=== PATIENT | male | born 1985 | race Caucasian/White ===

== ENCOUNTER 2020-04-04 18:50 | Emergency (ER) | payer MEDICAID, SELFPAY ==
[2020-04-04 19:03] VITALS: BP 162/108; PULSE 97; RESP 14; TEMP 37.6; O2SAT 95; BMI 21.4
--- NOTE | 2020-04-04 19:14 | PC.NURSE ---
EKG done at 191 and shown to ER doctor
--- NOTE | 2020-04-04 19:25 | XRR_ITS ---
PROCEDURE INFORMATION: Exam: XR Chest, 1 View Exam date and time: 04/04/2020 7:46 PM Age: 34 years old Clinical indication: Cough; Additional info: Cp TECHNIQUE: Imaging protocol: XR of the chest Views: 1 view. COMPARISON: No relevant prior studies available. FINDINGS: Lungs: Unremarkable. No consolidation. Pleural space: Unremarkable. No pleural effusion. No pneumothorax. Heart/Mediastinum: Unremarkable. No cardiomegaly. Bones/joints: Unremarkable. XR/XR chest 1V [id number] IMPRESSION: No acute findings.
--- NOTE | 2020-04-04 19:26 | ED_ITS ---
HPI - Abdominal Pain General: Chief Complaint: Abdominal Pain Stated Complaint: abd pain Time Seen by Provider: 04/04/20 19:08 History of Present Illness: HPI narrative: 34-year-old male, healthy, presents with epigastric abdominal pain the last 3 days. It radiates towards his left shoulder. He is not been short of breath, but hurts when he does take a deep breath. No vomiting. No diarrhea. He notes his blood pressures been high for the past couple of weeks and wonders if they are related. He has not had any cough. He states it almost feels like there is something stuck at the bottom of his chest in his esophagus. MD elicited complaint: abdominal pain Pertinent past history: none Onset (ago): day(s) (3) Location: Epigastric Severity: moderate Quality: cramping Radiation: epigastric Migration to: other (chest and left shoulder) Relieving factors: nothing Associated Symptoms: Reports nausea; Denies belching, chills, GI cramping, diarrhea, dysuria, fever(s), loose stools and vomiting Review of Systems Const: Denies: fever(s) or chills Eyes: Denies: change in vision or blurry vision ENMT: Denies: swelling of lips/tongue, bleeding gums or post nasal drip Card: Reports: chest pain; Denies: palpitations, irregular heart rhythm, swelling of feet/ankles, dyspnea on exertion or orthopnea Resp: Denies: dyspnea, productive cough, non-productive cough or wheezing GI: Reports: nausea; Denies: vomiting, diarrhea, GI cramping or belching : Denies: difficulty urinating or dysuria Musc: Denies: neck pain or back pain Skin/Breast: Denies: rash or erythema Neuro: Denies: headache(s), dizziness or vertigo Psych: Denies: anxiety PFSH ED PFSH: Family History (Updated 03/18/20 @ 08:42 by Haley Souza LPN, RT) Father Hypertension Mother , age 47 Cancer ovarian Denies family history of Clotting disorder Anesthesia complication Bleeding disorder Social History (Updated 03/18/20 @ 08:45 by Haley Souza LPN, RT) Smoking and tobacco status: current every day smoker cigarettes Packs smoked per day: 0.5 Years cigarettes smoked: 15 Second hand smoke exposure: Yes Alcohol intake: current Alcohol intake frequency: few times a month Alcohol type: beer Lives independently: Yes Household members: spouse Housing: House Marital status: Current occupational status: unemployed History of recent travel: No Current gender identity: Male Physical Exam Const: GENERAL APPEARANCE: well developed ORIENTATION/CONSCIOUSNESS: Yes oriented to person, Yes oriented to place and Yes oriented to time HENMT: COMMON NORMALS: normocephalic, external ears normal and Normal external nose present HEAD & SCALP: normocephalic; no scalp tenderness NOSE: Normal external nose present and No nasal discharge present EXTERNAL EAR: Yes external ears normal THROAT: posterior oropharynx normal; no peritonsillar mass Eye: COMMON NORMALS: Equal, round and reactive pupils present, EOMs intact bilaterally and conjunctivae normal EYELID: eyelids normal CONJUNCTIVA: Yes conjunctivae normal PUPIL: Yes Equal, round and reactive pupils present Neck/C-Spine: GENERAL: No tracheal deviation Chest: COMMONS NORMALS: normal inspection of the chest CHEST: No tenderness Resp: COMMON NORMALS: clear to auscultation bilaterally EFFORT & INSPECTION: No tachypneic, No respiratory distress, No retractions, No uses accessory muscles and No tracheal deviation AUSCULTATION: clear to auscultation bilaterally, no rhonchi, no wheezes and lung sounds not diminished Cardio: COMMON NORMALS: regular rate and regular rhythm RATE: regular rate RHYTHM: regular rhythm HEART SOUNDS: no murmurs PERIPHERAL PULSES: radial pulses present GI: INSPECTION: No abdominal distension AUSCULTATION: No Hyperactive bowel sounds present and No Hypoactive bowel sounds present PALPATION: Yes Tenderness to palpation present (GI) (epigastric), Yes Guarding due to palpation present (GI) and No Rigid due to palpation PERCUSSION: no dullness to percussion and no tympanic to percussion Neuro: SENSORIUM/ORIENTATION: Yes oriented to person, Yes oriented to place and Yes oriented to time Psych: COMMON NORMALS: mental status grossly normal Skin: COMMON NORMALS: no rashes or lesions noted GENERAL SKIN EXAM: no rashes or lesions noted Course Vital Signs: Vital signs: Vital Signs Temperature 98.1 F 04/04/20 21:05 Pulse Rate 78 04/04/20 22:40 Respiratory Rate 16 04/04/20 22:40 Blood Pressure 151/105 04/04/20 22:40 Pulse Oximetry 98 04/04/20 22:40 MDM - Abdominal Pain Lab Data: Labs: Lab Results 04/04/20 04/04/20 04/04/20 Range/Units 19:43 19:43 19:43 WBC 10.2 H (4.0-10.0) 10^3/ uL RBC 4.64 (4.1-5.3) 10^6/u L Hgb 13.8 (11.7-16.6) g/dL Hct 41.1 L (42.0-52.0) % MCV 88.6 (80-94) fL MCH 29.7 (28.0-34.0) pg MCHC 33.6 (30.0-36.0) g/dL RDW 13.4 (12.1-15.1) % Plt Count 181 (130-400) 10^3/c mm MPV 9.3 (7.4-10.4) fL Neut % (Auto) 56.2 % Lymph % (Auto) 33.1 % [place] % (Auto) 8.7 % Eos % (Auto) 1.3 % Baso % (Auto) 0.5 % Neut # (Auto) 5.71 (1.8-7.7) 10^3/u L Lymph # (Auto) 3.4 (0.8-4.8) 10^3/u L [place] # (Auto) 0.9 (0.2-0.9) 10^3/u L Eos # (Auto) 0.1 (0.0-0.8) 10^3/u L Baso # (Auto) 0.1 (0.0-0.1) 10^3/u L Nucleated RBC % (a uto) 0 % Nucleated RBCs # 0.0 /100WBC D-Dimer 0.56 (0-0.59) ug/mIFE U Sodium 138 (136-145) mmol/L Potassium 3.3 L (3.5-5.1) mmol/L Chloride 104 (98-107) mmol/L Carbon Dioxide 25 (22-29) mmol/L Anion Gap 12.3 (5-19) BUN 12 (6-20) mg/dL Creatinine 0.8 (0.7-1.2) mg/dL GFR Calculation 110.7 (90-130) mL/min Glucose 119 H (65-115) mg/dL Calculated Osmolal ity 283 L (285-295) mOsm/k g Calcium 9.1 (8.5-10.5) mg/dL Total Bilirubin 0.2 (0.15-1.2) mg/dL AST 15 (0-40) U/L ALT 11 (0-41) U/L Alkaline Phosphata se 62 (40-130) IU/L Troponin T Gen 5 n g/L (0-15) ng/L C-Reactive Protein 47.7 H (0.0-4.9) mg/L Total Protein 6.9 (6.6-8.7) g/dL Albumin 4.4 (3.5-5.2) g/dL Globulin 2.5 (1.3-4.6) g/dL Lipase 62 H (13-60) U/L Urine Color (Yellow) Urine Appearance (CLEAR) Urine pH (5-7) Ur Specific Gravit y (1.005-1.030) Urine Protein (Negative) Urine Glucose (UA) (Normal) Urine Ketones (Negative) Urine Blood (Negative) Urine Nitrate (Negative) Urine Bilirubin (NEGATIVE) Urine Urobilinogen (Negative) mg/dL Ur Leukocyte Karissa ase (Negative) Urine RBC (0-2) /hpf Urine WBC (0-5) /hpf Ur Squamous Epith Cells (0-5) Ur Transition Epit h Cell /hpf Amorphous Sediment Urine Bacteria (NONE) 04/04/20 04/04/20 Range/Units 19:43 20:30 WBC (4.0-10.0) 10^3/ uL RBC (4.1-5.3) 10^6/u L Hgb (11.7-16.6) g/dL Hct (42.0-52.0) % MCV (80-94) fL MCH (28.0-34.0) pg MCHC (30.0-36.0) g/dL RDW (12.1-15.1) % Plt Count (130-400) 10^3/c mm MPV (7.4-10.4) fL Neut % (Auto) % Lymph % (Auto) % [place] % (Auto) % Eos % (Auto) % Baso % (Auto) % Neut # (Auto) (1.8-7.7) 10^3/u L Lymph # (Auto) (0.8-4.8) 10^3/u L [place] # (Auto) (0.2-0.9) 10^3/u L Eos # (Auto) (0.0-0.8) 10^3/u L Baso # (Auto) (0.0-0.1) 10^3/u L Nucleated RBC % (a uto) % Nucleated RBCs # /100WBC D-Dimer (0-0.59) ug/mIFE U Sodium (136-145) mmol/L Potassium (3.5-5.1) mmol/L Chloride (98-107) mmol/L Carbon Dioxide (22-29) mmol/L Anion Gap (5-19) BUN (6-20) mg/dL Creatinine (0.7-1.2) mg/dL GFR Calculation (90-130) mL/min Glucose (65-115) mg/dL Calculated Osmolal ity (285-295) mOsm/k g Calcium (8.5-10.5) mg/dL Total Bilirubin (0.15-1.2) mg/dL AST (0-40) U/L ALT (0-41) U/L Alkaline Phosphata se (40-130) IU/L Troponin T Gen 5 n g/L 6 (0-15) ng/L C-Reactive Protein (0.0-4.9) mg/L Total Protein (6.6-8.7) g/dL Albumin (3.5-5.2) g/dL Globulin (1.3-4.6) g/dL Lipase (13-60) U/L Urine Color Yellow (Yellow) Urine Appearance Hazy A (CLEAR) Urine pH 6 (5-7) Ur Specific Gravit y 1.020 (1.005-1.030) Urine Protein Neg (Negative) Urine Glucose (UA) Norm (Normal) Urine Ketones Negative (Negative) Urine Blood Neg (Negative) Urine Nitrate Negative (Negative) Urine Bilirubin Neg (NEGATIVE) Urine Urobilinogen 1 H (Negative) mg/dL Ur Leukocyte Karissa ase Negative (Negative) Urine RBC 0-4 H (0-2) /hpf Urine WBC None (0-5) /hpf Ur Squamous Epith Cells None (0-5) Ur Transition Epit h Cell None /hpf Amorphous Sediment 3+ Urine Bacteria Trace (NONE) Discharge Plan Discharge Patient Disposition: Home Clinical Impression: Gastritis Qualifiers: Gastritis type: unspecified gastritis Chronicity: acute Gastritis bleeding: without bleeding Qualified Code(s): K29.00 - Acute gastritis without bleeding Hypertension Qualifiers: Hypertension type: essential hypertension Qualified Code(s): I10 - Essential (primary) hypertension Condition: Stable Prescriptions: New Prevacid 30 mg capsule,delayed release(DR/EC) 30 mg PO DAILY Qty: 30 RF: 0 amlodipine 10 mg tablet 10 mg PO DAILY Qty: 30 RF: 0 No Action citalopram [Celexa] 20 mg tablet 20 mg PO DAILY RF: 0 fluticasone propionate [Flonase Allergy Relief] 50 mcg/actuation spray,suspension 2 spray INTRANASAL DAILY Qty: 16 RF: 0 cetirizine [Zyrtec] 10 mg tablet 10 mg PO DAILY PRN (Reason: allergy symptoms) Qty: 30 RF: 0 Discharge Orders: Discharge Order (Routine); Ordered 04/04/20 Ordered By: Jaylon Staley Referrals: Mika Campbell, SENIOR STAFF SPECIALIZED EMPLOYMENT-[employer] [Primary Care Provider] - 4-7 days Discharge Diet: Advance as tolerated Discharge Activity: Increase activity as tolerated Patient Instructions: Gastritis (ED), Hypertension (ED) Activity Restrictions/Additional Instructions: Return for fever greater than 100, worsening pain despite treatment, numbing liquids or medications, increasing shortness of breath, other concerning symptoms. Medications as directed. Discharge Date/Time: 04/04/20 22:41 Coding Level of Care Code ED Environmental Engineer Scientist for Ashutoshg Fwd Exam Comprehensive
[2020-04-04] MEDS: sodium chloride 0.9% 1,000 ML 999 ML IV (19:48)
[2020-04-04 20:14] LABS: Basophils # 0.1 10^3/uL (0.0-0.1); Basophils % 0.5 %; Eosinophils # 0.1 10^3/uL (0.0-0.8); Eosinophils % 1.3 %; Hematocrit 41.1 % (42.0-52.0); Hemoglobin 13.8 g/dL (11.7-16.6); Lymphocytes # 3.4 10^3/uL (0.8-4.8); Lymphocytes % 33.1 %; Mean Corpuscular HGB Conc 33.6 g/dL (30.0-36.0); Mean Corpuscular Hemoglobin 29.7 pg (28.0-34.0); Mean Corpuscular Volume 88.6 fL (80-94); Mean Platelet Volume 9.3 fL (7.4-10.4); Monocytes # 0.9 10^3/uL (0.2-0.9); Monocytes % 8.7 %; Neutrophils # 5.71 10^3/uL (1.8-7.7); Neutrophils % 56.2 %; Nucleated Red Blood Cells % 0 %; Platelet Count 181 10^3/cmm (130-400); Red Blood Count 4.64 10^6/uL (4.1-5.3); Red Cell Distribution Width 13.4 % (12.1-15.1); White Blood Count 10.2 10^3/uL (4.0-10.0)
[2020-04-04 20:24] LABS: D Dimer 0.56 ug/mIFEU (0-0.59)
[2020-04-04 20:27] LABS: Alanine Aminotransferase 11 U/L (0-41); Albumin Level 4.4 g/dL (3.5-5.2); Alkaline Phosphatase 62 IU/L (40-130); Anion Gap 12.3 (5-19); Aspartate Amino Transferase 15 U/L (0-40); Blood Urea Nitrogen 12 mg/dL (6-20); Calcium 9.1 mg/dL (8.5-10.5); Carbon Dioxide 25 mmol/L (22-29); Chloride 104 mmol/L (98-107); Globulin 2.5 g/dL (1.3-4.6); Glomerular Filtration Rate 110.7 mL/min (90-130); Glucose 119 mg/dL (65-115); Lipase 62 U/L (13-60); Osmolality Calculated 283 mOsm/kg (285-295); Potassium 3.3 mmol/L (3.5-5.1); Sodium 138 mmol/L (136-145); Total Bilirubin 0.2 mg/dL (0.15-1.2); Total Protein 6.9 g/dL (6.6-8.7)
[2020-04-04 20:29] LABS: Troponin T (5th) Once 6 ng/L (0-15)
[2020-04-04 21:05] VITALS: TEMP 36.7
[2020-04-04 21:05] LABS: Blood Urine Neg (Negative); Glucose Urine UA Norm (Normal); Ketones Urine Negative (Negative); Nitrate Urine Negative (Negative); Protein Urine Neg (Negative); Urine Appearance Hazy (CLEAR); Urine Color Yellow (Yellow); pH Urine 6 (5-7)
[2020-04-04 21:06] LABS: Add Urine Microscopic? YES; Bilirubin Urine Neg (NEGATIVE); Leukocyte Esterase Urine Negative (Negative); Urobilinogen Urine 1 mg/dL (Negative)
[2020-04-04 21:14] LABS: C Reactive Protein 47.7 mg/L (0.0-4.9)
[2020-04-04 21:29] LABS: Add Urine Culture? No; Amorphous Sediment Urine 3+; Bacteria Urine TRACE; RBC Urine 0-4 /hpf (0-2)
[2020-04-04] MEDS: potassium chloride ER 10 mEq Tablet 20 MEQ PO (22:33)
[2020-04-04 22:40] VITALS: BP 151/105; PULSE 78; RESP 16; O2SAT 98
== END 2020-04-04 22:41 | disposition home or self-care (01) ==
PROVIDERS: Emergency Provider Emergency Medicine; PCP Nurse Practitioner
DX: K29.00 Acute gastritis without bleeding (principal); I10 Essential (primary) hypertension; F17.210 Nicotine dependence, cigarettes, uncomplicated
CPT/HCPCS: 12345; 71045; 80053; 81001; 81003; 83690; 84484; 85025; 85378; 86140; 96361; 96374; 99283; J7030

== ENCOUNTER 2020-12-01 10:44 | Emergency (ER) | payer MEDICAID, SELFPAY ==
[2020-12-01 11:15] VITALS: BP 164/131; PULSE 79; RESP 14; TEMP 36.9; O2SAT 99; BMI 21.4
--- NOTE | 2020-12-01 11:36 | ED_ITS ---
HPI - Dental/Oral General: Chief complaint: Dental/Oral Stated complaint: POSS GUM INFECTION Time Seen by Provider: 12/01/20 11:32 Source: patient Mode of arrival: ambulatory Limitations: no limitations History of Present Illness: HPI Narrative: Patient is a nice 35-year-old male who presents to ED today concerned about some gingival swelling, pain, and discharge he has had since he had all of his upper teeth extracted recently at [facility] in [place]. This procedure was performed 4 days ago. He was not placed on antibiotics before or after the procedure. He states he has noticed his gums feel extremely sore and has noticed a green pus like discharge from some of the sockets. He has not been running fevers. Patient is still able to tolerate liquids and soft foods. Onset (ago): day(s) Duration: constant Severity: moderate Relieving factors: nothing Exacerbating factors: nothing Context: poor dental care and other (several/all of upper teeth extracted recently ) Associated symptoms: Denies fever(s) or odynophagia Treatment prior to arrival: other (tylenol/ibuprofen and warm salt water rinses) Review of Systems Const: Denies: fever(s) or chills ENMT: Reports: dental pain; Denies: throat pain or odynophagia Card: Denies: chest pain Resp: Denies: dyspnea GI: Denies: nausea or vomiting Skin/Breast: Denies: rash Neuro: Denies: headache(s) Physical Exam Const: COMMON NORMALS: no acute distress, no limitations and alert GENERAL APPEARANCE: cooperative HENMT: TEETH & GINGIVA: Yes edentulous (to upper gumline) OTHER: pt has several (approximately 6-7) empty sockets to upper gumline from recent extractions; sockets have granulation tissue present in them; there is some mild gingival irritation and swelling; scant amount of drainage noted; no abscess formation present Neuro: SENSORIUM/ORIENTATION: Yes alert Course Vital Signs: Vital signs: Vital Signs Temperature 98.5 F 12/01/20 11:15 Pulse Rate 79 12/01/20 11:15 Respiratory Rate 14 12/01/20 11:15 Blood Pressure 164/131 12/01/20 11:15 Pulse Oximetry 99 12/01/20 11:15 Discharge Plan Discharge Patient Disposition: Home Clinical Impression: Status post tooth extraction Condition: Stable Prescriptions: New penicillin V potassium 500 mg tablet 500 mg PO Q8H 7 Days Qty: 21 RF: 0 Peridex 0.12 % mouthwash 15 ml PO BID Qty: 118 RF: 0 Discharge Orders: Discharge ED (Routine); Ordered 12/01/20 Ordered By: Alisha Correa Coding Level of Care Code ED Industrial Arts Teacher for Conor Castillo
[2020-12-01 11:54] VITALS: BP 196/125; PULSE 80; RESP 14; O2SAT 99
== END 2020-12-01 11:55 | disposition home or self-care (01) ==
PROVIDERS: Emergency Provider Physician Assistant
DX: K08.409 Partial loss of teeth, unspecified cause, unspecified class (principal)
CPT/HCPCS: 99282

== ENCOUNTER → 2021-02-19 10:43 | Outpatient (BNVA) | payer MEDICAID, SELFPAY | PROVIDERS: PCP Nurse Practitioner; Visit Provider Nurse Practitioner Family | DX: I10 Essential (primary) hypertension (principal); F41.9 Anxiety disorder, unspecified; F17.200 Nicotine dependence, unspecified, uncomplicated | CPT/HCPCS: 80053; 80061; 84443; 85025 ==

== ENCOUNTER 2021-07-17 21:20 | Emergency (ER) | payer MEDICAID, SELFPAY ==
[2021-07-17 21:35] VITALS: BP 116/72; PULSE 84; RESP 18; TEMP 37.1; O2SAT 97; BMI 21.4
--- NOTE | 2021-07-17 22:51 | W.ED.MALEGU ---
HPI - Male Genitourinary General: Chief complaint: Urogenital-Male Stated complaint: Painful Rash Time Seen by Provider: 07/17/21 22:51 History of Present Illness: HPI Narrative: 36-year-old male patient comes in today for complaints of rash to the groin that is tender. Patient also has a rash to his feet bilaterally. Patient appears well. Patient appears no acute distress. Review of Systems General: Reports: 10 or more systems reviewed and unremarkable except in HPI and below Musc: Reports: other (Rash to groin and feet) PFSH ED PFSH: Medical History No pertinent past medical history Surgical History No pertinent past surgical history Family History Father Hypertension Mother , age 47 Cancer ovarian Denies family history of Clotting disorder Anesthesia complication Bleeding disorder Social History Smoking and tobacco status: current every day smoker cigarettes Packs smoked per day: 0.5 Years cigarettes smoked: 15 Second hand smoke exposure: Yes Alcohol intake: current Alcohol intake frequency: few times a month Alcohol type: beer Desire information about substance/drug rehabilitation?: No Lives independently: Yes Household members: spouse Housing: House Marital status: Number of children: 6 Highest education level completed: High School Graduate service: No Current occupational status: employed Pets and animals: Yes History of recent travel: No Current gender identity: Male Physical Exam Const: COMMON NORMALS: no acute distress and patient oriented x3 GENERAL APPEARANCE: cooperative HENMT: COMMON NORMALS: normocephalic HEAD & SCALP: normal to inspection and normocephalic Eye: GENERAL EYE: appearance normal, both eyes and all related structures Neck/C-Spine: COMMON NORMALS: full ROM Chest: COMMONS NORMALS: normal inspection of the chest Resp: COMMON NORMALS: normal respiratory effort EFFORT & INSPECTION: Yes able to speak in complete sentences Cardio: COMMON NORMALS: regular rate and regular rhythm RATE: regular rate RHYTHM: regular rhythm GI: COMMON NORMALS: non-tender Back/Pelvis: COMMON NORMALS: thoracic and lumbar spine normal to inspection Extremity: COMMON NORMALS: normal to inspection Neuro: COMMON NORMALS: patient oriented x3 and moves all extremities Psych: COMMON NORMALS: mental status grossly normal and cooperative Skin: NARRATIVE SKIN EXAM: Rash noted to groin is erythematous with satellite lesions. Patient also has a sloughing rash to his webbing of his toes and soles of his feet. Course Vital Signs: Vital signs: Vital Signs Temperature 98.8 F 07/17/21 23:50 Pulse Rate 84 07/17/21 23:50 Respiratory Rate 18 07/17/21 23:50 Blood Pressure 116/72 07/17/21 23:50 Pulse Oximetry 97 07/17/21 23:50 MDM - Male MDM Narrative: Medical decision making narrative: Patient comes in for rash to the groin and feet. On exam we noticed a erythematous rash to the groin with some satellite lesions, patient also has a rash to his feet. Tinea pedis, tinea corporis, intertrigo. Recommended treatment for intertrigo to his groin with Chlortrimazole and hydrocortisone. We will continue with Chlortrimazole to the feet for his athlete's foot. Patient reported understanding of care plan and need for follow-up or return. Discharge Plan Discharge Patient Disposition: Home Clinical Impression: Tinea pedis of both feet, Intertrigo Condition: Stable Prescriptions: New clotrimazole 1 % cream 1 applic topical BID 28 Days Qty: 30 RF: 0 hydrocortisone 1 % cream 1 applic topical BID PRN (Reason: skin irritation) Qty: 28.35 RF: 0 No Action citalopram [Celexa] 20 mg tablet 20 mg PO DAILY 30 Days Qty: 30 RF: 5 fluticasone propionate [Flonase Allergy Relief] 50 mcg/actuation spray,suspension 2 spray INTRANASAL DAILY Qty: 16 RF: 0 cetirizine [Zyrtec] 10 mg tablet 10 mg PO DAILY PRN (Reason: allergy symptoms) Qty: 30 RF: 0 Discharge Orders: Discharge ED (Routine); Ordered 07/17/21 Ordered By: Nathaniel Toribio Referrals: Mika Campbell, SHIPPING CLERK [employer] [Primary Care Provider] - Discharge Diet: Usual diet Discharge Activity: Increase activity as tolerated Patient Instructions: Tinea Corporis (ED), Opioid Safety Activity Restrictions/Additional Instructions: Use Chlortrimazole cream twice a day for the next 2 to 4 weeks. You should notice improvement within 1 week continue using the cream for another 7 days after clearance. Follow-up with primary care in 1 week for recheck. Use hydrocortisone cream as needed for skin irritation and discomfort. Return to the emergency department for new concerns. Coding Level of Care Code ED Wall Taper Helper for Conor Castillo
[2021-07-17] MEDS: clotrimazole 1% cream 30 gm 1 APPLIC TOPICAL (23:48)
[2021-07-17] MEDS: hydrocortisone 1% cream 28 gm 1 APPLIC TOPICAL (23:48)
[2021-07-17 23:50] VITALS: BP 116/72; PULSE 84; RESP 18; TEMP 37.1; O2SAT 97
== END 2021-07-17 23:51 | disposition home or self-care (01) ==
PROVIDERS: Emergency Provider Nurse Practitioner Family; PCP Nurse Practitioner
DX: B35.3 Tinea pedis (principal); L30.4 Erythema intertrigo; F17.210 Nicotine dependence, cigarettes, uncomplicated
CPT/HCPCS: 99283

== ENCOUNTER 2022-04-02 00:59 | Inpatient (IN) | payer MEDICAID, SELFPAY ==
[2022-04-02 01:00] VITALS: BMI 22.8
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
[2022-04-02 01:25] LABS: Basophils # 0.1 10^3/uL (0.0-0.1); Basophils % 0.9 %; Eosinophils # 0.2 10^3/uL (0.0-0.8); Eosinophils % 1.9 %; Hematocrit 43.9 % (42.0-52.0); Hemoglobin 15.2 g/dL (11.7-16.6); Lymphocytes # 3.1 10^3/uL (0.8-4.8); Lymphocytes % 35.7 %; Mean Corpuscular HGB Conc 34.6 g/dL (30.0-36.0); Mean Corpuscular Hemoglobin 30.6 pg (28.0-34.0); Mean Corpuscular Volume 88.3 fl (80-94); Mean Platelet Volume 8.9 fL (7.4-10.4); Monocytes # 0.7 10^3/uL (0.2-0.9); Monocytes % 8.3 %; Neutrophils # 4.56 10^3/uL (1.8-7.7); Nucleated Red Blood Cells % 0 %; Platelet Count 216 10^3/cmm (130-400); Red Blood Count 4.97 10^6/uL (4.1-5.3); Red Cell Distribution Width 13.4 % (12.1-15.1); White Blood Count 8.6 10^3/uL (4.0-10.0)
[2022-04-02 02:03] LABS: Alanine Aminotransferase 13 U/L (0-41); Albumin Level 4.8 g/dL (3.5-5.2); Alcohol Level 94 mg/dL (0-10); Alkaline Phosphatase 71 IU/L (40-130); Anion Gap 14.5 (5-19); Aspartate Amino Transferase 19 U/L (0-40); Blood Urea Nitrogen 11 mg/dL (6-20); Calcium 8.9 mg/dL (8.5-10.5); Carbon Dioxide 24 mmol/L (22-29); Chloride 105 mmol/L (98-107); Creatinine Clr Calc Pharmacy 113.2168; Globulin 2.5 g/dL (1.3-4.6); Glomerular Filtration Rate 95.5 mL/min (90-130); Glucose 99 mg/dL (65-115); Osmolality Calculated 289 mOsm/kg (285-295); Potassium 3.5 mmol/L (3.5-5.1); Sodium 140 mmol/L (136-145); Thyroid Stimulating Hormone 2.02 uIU/mL (0.27-4.20); Total Bilirubin 0.3 mg/dL (0.15-1.2); Total Protein 7.3 g/dL (6.6-8.7)
[2022-04-02 02:07] LABS: Acetaminophen < 5.0 ug/mL (10-30); Salicylate < 0.3 mg/dL (3-10)
[2022-04-02 05:41] LABS: Amphetamines Screen Urine Negative (Negative); Barbiturates Screen Urine Negative (Negative); Benzodiazepines Screen Urine Negative (Negative); Cocaine Screen Urine Negative (Negative); Opiate Screen Urine Negative (Negative); PCP Screen Urine Negative (Negative); THC Screen Urine Positive (Negative)
[2022-04-02 05:50] LABS: SARS Covid-2 Antigen Negative (Negative)
--- NOTE | 2022-04-02 08:09 | PC.PHAR ---
pt states he takes care of his own medications-pt states he doesnt take the diovan 40mg ext med history shows last filled 10/27/21 pt states never took
[2022-04-02 12:16] VITALS: BP 156/109; PULSE 89; RESP 16; TEMP 36.8; O2SAT 99
[2022-04-02 12:19] VITALS: BP 156/109; PULSE 89; RESP 16; TEMP 36.8; O2SAT 99
[2022-04-02 13:09] VITALS: BP 177/122
[2022-04-02] MEDS: cloNIDine 0.1 mg Tablet PO (13:09)
[2022-04-02] MEDS: hyDROXYzine 25 mg Capsule 50 MG PO (13:09)
--- NOTE | 2022-04-02 13:09 | PC.NURSE ---
PRN VISTARIL 50 MG GIVEN PO PER PT C/O ANXIETY
[2022-04-02 14:00] VITALS: BP 163/103; PULSE 68; RESP 17; TEMP 36.9; O2SAT 98
[2022-04-02 20:25] VITALS: BP 140/98; PULSE 92; RESP 18; TEMP 36.8; O2SAT 97
[2022-04-03 06:00] VITALS: BP 153/93; PULSE 18; RESP 18; TEMP 36.5; O2SAT 97
[2022-04-03] MEDS: folic acid 1 mg Tablet PO (08:54)
[2022-04-03] MEDS: citalopram 20 mg Tablet PO (08:54)
[2022-04-03] MEDS: multivitamin therapeutic Tablet 1 TAB PO (08:54)
[2022-04-03] MEDS: thiamine 100 mg Tablet PO (08:54)
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
[2022-04-03 14:00] VITALS: BP 178/97; PULSE 86; RESP 17; TEMP 36.6; O2SAT 98
[2022-04-03] MEDS: LORazepam 2 mg Tablet PO (15:03)
--- NOTE | 2022-04-03 15:03 | PC.NURSE ---
ciwa score 10--ativan 2 mg given po per protocol, blood pressure 178/97
[2022-04-03 15:41] VITALS: BP 158/93; PULSE 80; O2SAT 97
[2022-04-03 22:00] VITALS: BP 146/93; PULSE 88; RESP 17; TEMP 36.7; O2SAT 96
[2022-04-04 06:00] VITALS: BP 160/94; PULSE 80; RESP 17; TEMP 36.6; O2SAT 97; BMI 22.8
[2022-04-04] MEDS: citalopram 20 mg Tablet 30 MG PO (09:18)
[2022-04-04] MEDS: multivitamin therapeutic Tablet 1 TAB PO (09:18)
[2022-04-04] MEDS: thiamine 100 mg Tablet PO (09:18)
[2022-04-04] MEDS: folic acid 1 mg Tablet PO (09:20)
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
[2022-04-04] MEDS: amlodipine 5 mg Tablet PO (12:13)
--- NOTE | 2022-04-04 12:13 | PC.NURSE ---
Per Dr. Valentin consulted Dr. Murray Hospitalist about pt's hypertension. Dr. Murray ordered Amlodipine 5mg PO daily.
[2022-04-04 14:00] VITALS: BP 159/96; PULSE 85; RESP 17; TEMP 36.6; O2SAT 97
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
--- NOTE | 2022-04-04 17:37 | PM.CONSULT ---
Providers/Reason For Consult Consulting Physician/Specialty*: Dr. Fabian Valentin Reason for Consult*: Hypertension Attending Physician: Fabian Valentin MD Primary Care Provider: ALESHA Browning History of Present Illness History of Present Illness Boo Gibbs is a 36 year old male currently admitted under psych for management homicidal behavior generalized anxiety disorder , medicine was consulted for management of elevated blood pressure.Patient has known past medical history of hypertension But has not taken antihypertensive medications for a long time. Overall patient blood pressure in the last couple of days has mostly remained in 140s to 160s systolic blood pressure, and diastolic in 90s. Review of Systems General: Reports: 10 or more systems reviewed and unremarkable except in HPI and below Const: Denies: fever(s), chills, body aches, change in appetite or diaphoresis Card: Denies: palpitations, edema, swelling of feet/ankles, dyspnea on exertion, orthopnea or leg pain with exertion Resp: Denies: dyspnea, productive cough, wheezing or pain on inspiration GI: Denies: abdominal pain, nausea, vomiting, diarrhea or constipation : Denies: flank pain or difficulty urinating Musc: Denies: back pain, extremity pain or extremity swelling Neuro: Denies: headache(s), difficulty walking or confusion Medications/Allergies Home Medications Medication Instructions Recorded Confirmed Last Taken Type acetaminophen 500 mg tablet 1,000 mg PO Q6H PRN 04/02/22 04/02/22 Unknown History citalopram 20 mg tablet 20 mg PO DAILY 04/02/22 04/02/22 Unknown History ibuprofen 200 mg tablet 400 mg PO Q6H PRN 04/02/22 04/02/22 Unknown History Allergies Allergy/AdvReac Type Severity Reaction Status Date / Time No Known Allergies Allergy Verified 04/02/22 08:07 Current Medications Generic Name Dose Route Start Last Admin Trade Name Freq PRN Reason Stop Dose Admin Amlodipine Besylate 5 mg 04/04/22 12:00 04/04/22 12:13 Amlodipine 5 Mg Tablet PO 5 mg DAILY NANI Administration Folic Acid 1 mg 04/03/22 09:00 04/04/22 09:20 Folic Acid 1 Mg Tablet PO 1 mg DAILY NANI Administration Hydroxyzine Pamoate 50 mg 04/02/22 12:32 04/02/22 13:09 Hydroxyzine 25 Mg Capsule PO 50 mg Q6H PRN Administration ANXIETY Lorazepam 2 mg 04/02/22 18:37 04/03/22 15:03 Lorazepam 2 Mg Tablet PO 2 mg PROTOCOL PRN Administration WITHDRAWAL Protocol Multivitamins Therapeutic 1 tab 04/03/22 09:00 04/04/22 09:18 Multivitamin Therapeutic Tablet PO 1 tab DAILY NANI Administration Thiamine Mononitrate 100 mg 04/03/22 09:00 04/04/22 09:18 Thiamine 100 Mg Tablet PO 100 mg DAILY NANI Administration PFSH Acute PFSH: Medical History Essential hypertension Generalized anxiety disorder History of staph infection Smoker Surgical History History of oral surgery Family History Father Hypertension Mother , age 47 Cancer ovarian Denies family history of Clotting disorder Anesthesia complication Bleeding disorder Social History Smoking and tobacco status: current every day smoker cigarettes Packs smoked per day: 0.5 Years cigarettes smoked: 15 Quit status (tobacco): has tried quititng Second hand smoke exposure: Yes Smoking risk assessment/counseling performed?: No Alcohol intake: current Alcohol intake frequency: few times a month Alcohol type: beer Desire information about alcohol rehabilitation?: No Counseling given: No Desire information about substance/drug rehabilitation?: No Counseling given: No Adopted: No Caregiver/support person: No Lives independently: Yes Household members: spouse Housing: House Marital status: Number of children: 6 Highest education level completed: High School Graduate service: No Current occupational status: employed Pets and animals: Yes History of recent travel: No Current gender identity: Male Vitals/I&O/Wt Last Vital Signs Temp 98 F 04/04/22 14:00 Pulse 85 04/04/22 14:00 Resp 17 04/04/22 14:00 BP 159/96 04/04/22 14:00 Pulse Ox 97 04/04/22 14:00 Weight last 48 hrs Weight 70.307 kg Physical Exam Const: COMMON NORMALS: patient oriented x3 HENMT: COMMON NORMALS: normocephalic and atraumatic HEAD & SCALP: normocephalic and atraumatic Resp: COMMON NORMALS: clear to auscultation bilaterally EFFORT & INSPECTION: Yes symmetric chest movement AUSCULTATION: clear to auscultation bilaterally Cardio: COMMON NORMALS: regular rate, regular rhythm, S1 normal heart sound present, S2 normal heart sound present, No gallops present (Cardio), No murmurs present (Cardio), No rub (Cardio) and Peripheral pulses 2+ throughout RATE: regular rate RHYTHM: regular rhythm HEART SOUNDS: S1 normal heart sound present and S2 normal heart sound present PERIPHERAL PULSES: Peripheral pulses 2+ throughout GI: COMMON NORMALS: Normal to inspection, nondistended, normoactive bowel sounds present, Soft to palpation, non-tender, No hepatosplenomegaly present and no masses AUSCULTATION: Yes normoactive bowel sounds PALPATION: Yes Soft to palpation and Yes No hepatosplenomegaly present RECTAL EXAM: Yes deferred Extremity: COMMON NORMALS: no clubbing, cyanosis or edema and no pedal edema Neuro: COMMON NORMALS: patient oriented x3 Data : 04/02/22 01:20 04/02/22 01:20 A&P Assessment and plan (1) Essential hypertension: Status: Chronic Plan 36 year old male currently admitted under psych for management homicidal behavior generalized anxiety disorder , medicine was consulted for management of elevated blood pressure. Overall patient blood pressure in the last couple of days has mostly remained in 140s to 160s systolic blood pressure, and diastolic in 90s. Assessment: Essential hypertension: RAH Plan: Continue amlodipine 5 mg p.o. daily for now Blood pressure goal by age < 120/80 MM HG Amlodipine dose can be uptitrated to 10 mg p.o. daily starting tomorrow morning. Thank you for consulting medicine call us with questions. Patient can follow-up primary care medicine as an outpatient for long-term blood pressure management Medicine will sign off. Coding Level of Care Code Acute Dramatic Agent for [facility] Fwd Exam Detailed Diagnoses Essential hypertension I10
[2022-04-04 20:38] VITALS: BP 166/98; PULSE 85; RESP 16; TEMP 36.7; O2SAT 96
[2022-04-05 05:59] VITALS: BP 158/98; PULSE 71; RESP 17; TEMP 36.8; O2SAT 98
[2022-04-05] MEDS: thiamine 100 mg Tablet PO (08:03)
[2022-04-05] MEDS: citalopram 20 mg Tablet 40 MG PO (08:03)
[2022-04-05] MEDS: folic acid 1 mg Tablet PO (08:03)
[2022-04-05] MEDS: multivitamin therapeutic Tablet 1 TAB PO (08:03)
[2022-04-05] MEDS: amlodipine 5 mg Tablet 10 MG PO (08:03)
[2022-04-05 14:00] VITALS: BP 158/105; PULSE 85; RESP 17; TEMP 36.6; O2SAT 96
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
[2022-04-05 20:07] VITALS: PULSE 75; RESP 17; TEMP 36.6; O2SAT 96
[2022-04-05 20:53] VITALS: BP 148/98
[2022-04-06 06:00] VITALS: BP 151/108; PULSE 90; RESP 17; TEMP 36.6; O2SAT 98
[2022-04-06] MEDS: amlodipine 5 mg Tablet 10 MG PO (10:21)
[2022-04-06] MEDS: multivitamin therapeutic Tablet 1 TAB PO (10:21)
[2022-04-06] MEDS: folic acid 1 mg Tablet PO (10:21)
[2022-04-06] MEDS: thiamine 100 mg Tablet PO (10:22)
[2022-04-06] MEDS: citalopram 20 mg Tablet 40 MG PO (10:22)
[2022-04-06 13:57] VITALS: BP 136/89; PULSE 92; RESP 17; TEMP 36.9; O2SAT 99
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
[2022-04-06 20:02] VITALS: BP 160/97; PULSE 86; RESP 16; TEMP 36.4; O2SAT 96
[2022-04-07 06:00] VITALS: BP 130/88; PULSE 87; RESP 17; TEMP 36.5; O2SAT 98
[2022-04-07] MEDS: amlodipine 5 mg Tablet 10 MG PO (09:16)
[2022-04-07] MEDS: folic acid 1 mg Tablet PO (09:16)
[2022-04-07] MEDS: multivitamin therapeutic Tablet 1 TAB PO (09:16)
[2022-04-07] MEDS: thiamine 100 mg Tablet PO (09:16)
[2022-04-07] MEDS: citalopram 20 mg Tablet 40 MG PO (09:16)
[2022-04-07 14:00] VITALS: BP 185/100; PULSE 91; RESP 16; TEMP 36.6; O2SAT 95
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
[2022-04-07 19:46] VITALS: BP 138/99; PULSE 87; RESP 16; TEMP 36.7; O2SAT 97
[2022-04-08 06:00] VITALS: BP 138/98; PULSE 87; RESP 18; TEMP 36.6; O2SAT 97
[2022-04-08] MEDS: amlodipine 5 mg Tablet 10 MG PO (09:05)
[2022-04-08] MEDS: multivitamin therapeutic Tablet 1 TAB PO (09:05)
[2022-04-08] MEDS: thiamine 100 mg Tablet PO (09:05)
[2022-04-08] MEDS: folic acid 1 mg Tablet PO (09:05)
[2022-04-08] MEDS: citalopram 20 mg Tablet 40 MG PO (09:05)
[2022-04-08 11:14] VITALS: BP 138/98; PULSE 87; RESP 18; TEMP 36.6; O2SAT 97
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
== END 2022-04-08 12:52 | disposition home or self-care (01) | DRG 886 ==
LOC: ER 09:49 → NP 12:29
PROVIDERS: Emergency Medicine; Admitting Provider Psychiatry & Neurology Psychiatry; Emergency Provider Family Medicine; PCP Nurse Practitioner; Visit Provider Psychiatry & Neurology Psychiatry
DX: F63.9 Impulse disorder, unspecified (principal); F41.1 Generalized anxiety disorder; R45.850 Homicidal ideations; I10 Essential (primary) hypertension; F10.929 Alcohol use, unspecified with intoxication, unspecified; Y90.4 Blood alcohol level of 80-99 mg/100 ml; F17.210 Nicotine dependence, cigarettes, uncomplicated; F15.11 Other stimulant abuse, in remission; Z65.3 Problems related to other legal circumstances; Z63.0 Problems in relationship with spouse or partner; Z63.8 Other specified problems related to primary support group; Z81.8 Family history of other mental and behavioral disorders; Z62.811 Personal history of psychological abuse in childhood; Z20.822 Contact with and (suspected) exposure to COVID-19
CPT/HCPCS: 80053; 80306; 80307; 84443; 85025; 87426; 97150; 97165; 99285

== ENCOUNTER → 2022-07-27 10:43 | Outpatient (BNVA) | payer MEDICAID, SELFPAY | PROVIDERS: PCP Nurse Practitioner; Visit Provider Nurse Practitioner | DX: I10 Essential (primary) hypertension (principal); F41.1 Generalized anxiety disorder | CPT/HCPCS: 80053; 80061 ==

== ENCOUNTER 2022-11-04 21:26 | Emergency (ER) | payer MEDICAID, SELFPAY ==
[2022-11-04 21:30] VITALS: BP 160/108; PULSE 76; RESP 15; TEMP 36.7; O2SAT 97
--- NOTE | 2022-11-04 21:45 | XRR_ITS ---
PROCEDURE INFORMATION: Exam: XR Chest Exam date and time: 11/04/2022 9:51 PM Age: 37 years old Clinical indication: Shortness of breath; Additional info: SOB TECHNIQUE: Imaging protocol: Radiologic exam of the chest. Views: 1 view. COMPARISON: CR XR chest 1V [id number] 04/04/2020 7:34 PM FINDINGS: Lungs: Lungs are clear bilaterally. Pleural spaces: No pleural effusion. No pneumothorax. Heart/Mediastinum: The cardiac silhouette and mediastinal contours are unremarkable. Bones/joints: Unremarkable for age. XR/XR chest 1V portable [id number] IMPRESSION: No acute cardiopulmonary process.
--- NOTE | 2022-11-04 21:45 | ECG_ITS ---
[facility] Test Date: 2022-11-04 Pat Name: Boo Gibbs Department: Room: Gender: Male [employer] Executive Director: : 1985 Requested By: Nathaniel Green Order Number: [id number] Charissa MD: Josiah Lopez M.D. Measurements Intervals [place] Rate: P: 0 PA: 0 QRS: 0 QRSD: 0 T: 0 QT: 0 QTc: 0 Interpretive Statements Sinus rhythm with blocked and conducted premature atrial contractions WARNING: DATA QUALITY MAY AFFECT INTERPRETATION No previous ECG available for comparison Electronically Signed On 11-04-2022 22:27:14 TERMITE CONTROL SERVICER by Josiah Lopez M.D. [email or web address]
--- NOTE | 2022-11-04 21:46 | ED_ITS ---
HPI - General Adult General: Chief complaint: General Medical Stated complaint: High BP Time Seen by Provider: 11/04/22 21:45 History of Present Illness: 37-year-old male patient was brought in by his female significant other for concerns of elevated blood pressure. Patient spouse that the blood pressure got up to 166 systolic. Patient denies any chest pain or shortness of breath at this time. Patient appears nontoxic. Patient has had increased blood pressure up to 190s and some chest pain in the past. Review of patient medical history he has a history of major depressive disorder, tobacco use disorder, methamphetamines, and cannabis use. Patient restarted taking his valsartan 3 days ago. Patient had stopped taking the medication because he felt it was not helping him. 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 Nicotine dependence, cigarettes, uncomplicated Psychiatric care Smoker Surgical History History of oral surgery Family History Father Hypertension Mother , age 47 Cancer ovarian Denies family history of Clotting disorder Anesthesia complication Bleeding disorder Social History Smoking and tobacco status: current every day smoker cigarettes Packs smoked per day: 0.5 Years cigarettes smoked: 15 Quit status (tobacco): has tried quititng Number of times tried to quit tobacco: 3 Second hand smoke exposure: Yes Smoking risk assessment/counseling performed?: No Alcohol intake: former Desire information about alcohol rehabilitation?: No Counseling given: No Desire information about substance/drug rehabilitation?: No Counseling given: No Adopted: No Caregiver/support person: No Lives independently: Yes Household members: spouse Housing: House Marital status: Number of children: 6 Highest education level completed: High School Graduate service: No Current occupational status: unemployed Pets and animals: Yes Current gender identity: Male Physical Exam Const: COMMON NORMALS: alert HENMT: COMMON NORMALS: normocephalic HEAD & SCALP: normocephalic Neck/C-Spine: COMMON NORMALS: full ROM Resp: COMMON NORMALS: normal respiratory effort and clear to auscultation bilaterally AUSCULTATION: clear to auscultation bilaterally Cardio: COMMON NORMALS: regular rate, regular rhythm, S1 normal heart sound present and S2 normal heart sound present RATE: regular rate RHYTHM: regular rhythm HEART SOUNDS: S1 normal heart sound present and S2 normal heart sound present GI: COMMON NORMALS: non-tender Extremity: COMMON NORMALS: no pedal edema Neuro: SENSORIUM/ORIENTATION: Yes alert Skin: COMMON NORMALS: turgor normal GENERAL SKIN EXAM: turgor normal Course Vital Signs: Vital signs: Vital Signs Temperature 98.0 F 11/04/22 21:30 Pulse Rate 76 11/04/22 21:30 Respiratory Rate 15 11/04/22 21:30 Blood Pressure 148/114 11/04/22 22:22 Pulse Oximetry 97 11/04/22 21:30 Oxygen Delivery Me thod 11/04/22 21:30 MDM - General Adult Medical Decision Making Patient comes in tonight for concerns of elevated blood pressure. Patient blood pressure has been as high as 166 systolic. Patient restarted taking his losartan or valsartan 3 days ago. Patient had stopped taking the medication due to his belief that it was not helping. Patient denies any chest pain or shortness of breath. On exam lungs are clear to auscultation heart rates regular with normal tones. No edema is noted. Patient appears nontoxic. Differential diagnosis includes uncontrolled hypertension, hypertensive emergency, CHF, ACS. CBC and CMP were pretty unremarkable except for a potassium of 3.4. Patient was given 20 mill equivalents of potassium. Blood pressure did go down to 148 but then rebounded back up to 165. This was after given 0.1 mg of clonidine. I went ahead and redosed the clonidine and discharge patient to home. Recommended lifestyle changes with smoking cessation and avoidance of alcohol and methamphetamines. Also discussed need for follow-up with primary care for adjustment of medications and further evaluation. Patient reported understanding and agreed to plan with need for return to ER for worsening symptoms. Lab Data 11/04/22 22:05 11/04/22 22:05 Radiology Impressions Chest X-Ray 11/04/22 21:45 IMPRESSION: No acute cardiopulmonary process. Laboratory Results WBC 8.9 10^3/uL (4.0-10.0) 11/04/22 22: RBC 4.89 10^6/uL (4.1-5.3) 11/04/22 22:05 Hgb 14.5 g/dL (11.7-16.6) 11/04/22 22:05 Hct 42.8 % (42.0-52.0) 11/04/22 22: MCV 87.5 fl (80-94) 11/04/22 22:05 MCH 29.7 pg (28.0-34.0) 11/04/22 22: MCHC 33.9 g/dL (30.0-36.0) 11/04/22 22:05 RDW 13.6 % (12.1-15.1) 11/04/22 22:05 Plt Count 214 10^3/cmm (130-400) 11/04/22 22:05 MPV 9.1 fL (7.4-10.4) 11/04/22 22:05 Neut % (Auto) 38.2 % 11/04/22 22: Lymph % (Auto) 49.3 % 11/04/22 22:05 [place] % (Auto) 8.8 % 11/04/22 22:05 Eos % (Auto) 2.7 % 11/04/22 22:05 Baso % (Auto) 0.8 % 11/04/22 22:05 Neut # (Auto) 3.38 10^3/uL (1.8-7.7) 11/04/22 22:05 Lymph # (Auto) 4.4 10^3/uL (0.8-4.8) 11/04/22 22:05 [place] # (Auto) 0.8 10^3/uL (0.2-0.9) 11/04/22 22:05 Eos # (Auto) 0.2 10^3/uL (0.0-0.8) 11/04/22 22:05 Baso # (Auto) 0.1 10^3/uL (0.0-0.1) 11/04/22 22:05 Nucleated RBC % (auto) 0 % 11/04/22:05 Nucleated RBCs # 0.0 /100WBC 11/04/22 22:05 Sodium 140 mmol/L (136-145) 11/04/22 22:05 Potassium 3.4 mmol/L (3.5-5.1) L 11/04/22 22:05 Chloride 103 mmol/L (98-107) 11/04/22 22:05 Carbon Dioxide 27 mmol/L (22-29) 11/04/22 22:05 Anion Gap 13.4 (5-19) 11/04/22 22:05 BUN 13 mg/dL (6-20) 11/04/22 22:05 Creatinine 0.9 mg/dL (0.7-1.2) 11/04/22 22:05 GFR Calculation 95.0 mL/min (90-130) 11/04/22 22:05 Glucose 108 mg/dL (65-115) 11/04/22 22:05 Calculated Osmolality 291 mOsm/kg (285-295) 11/04/22 22:05 Calcium 9.1 mg/dL (8.5-10.5) 11/04/22 22:05 Total Bilirubin 0.2 mg/dL (0.15-1.2) 11/04/22 22:05 AST 18 U/L (0-40) 11/04/22 22:05 ALT 16 U/L (0-41) 11/04/22 22:05 Alkaline Phosphatase 69 U/L (40-130) 11/04/22 22:05 Troponin T Baseline 6 ng/L (0-15) 11/04/22 22:05 NT-Pro-B Natriuret Pep 36 pg/mL (0-125) 11/04/22 22:05 Total Protein 7.0 g/dL (6.6-8.7) 11/04/22 22:05 Albumin 4.2 g/dL (3.5-5.2) 11/04/22 22:05 Globulin 2.8 g/dL (1.3-4.6) 11/04/22 22:05 Lipase 47 U/L (13-60) 11/04/22 22:05 EKG Data EKG 1: EKG interpretation date: 11/04/22 EKG interpretation time: 22:07 Prior EKG tracings: not available for review Interpretation: EKG shows a sinus rhythm with a irregular rate in the 70s. No ST elevation or ectopy is noted. Computer generated interpretation: Chest X-Ray 11/04/22 21:45 IMPRESSION: No acute cardiopulmonary process. Discharge Plan Discharge Patient Disposition: Home Clinical Impression: Essential hypertension Condition: Stable Prescriptions: No Action valsartan [Diovan] 40 mg tablet 40 mg PO DAILY Qty: 30 2RF aripiprazole [Abilify] 5 mg tablet 5 mg PO DAILY Qty: 30 2RF citalopram 40 mg tablet 40 mg PO DAILY 30 Days Qty: 30 2RF acetaminophen 500 mg Tablet 1,000 mg PO Q6H PRN (Reason: Pain) ibuprofen 200 mg Tablet 400 mg PO Q6H PRN (Reason: Pain) Vitamin B-1 (mononitrate) 100 mg Tablet 100 mg PO DAILY 30 Days Qty: 30 1RF Discharge Orders: Discharge ED (Routine); Ordered 11/04/22 Ordered By: Nathaniel Toribio Referrals: Mika Campbell, [employer] [Primary Care Provider] - Discharge Diet: As Directed Patient Instructions: DASH Eating Plan (ED), Hypertension (ED) Activity Restrictions/Additional Instructions: Get better control of your blood pressure you need to consider dietary and lifestyle changes. Continue taking your routine medications. Stop cigarette s moking, and do not drink more than 1 or 2 alcohol drinks a day which is one 12 ounce beer or 1 ounce of hard liquor or one 6 ounce glass of wine. Follow-up with primary care for adjustment of medication and further treatment. Coding Level of Care Code ED Behavioral Interventionist for Conor Castillo
[2022-11-04 22:15] LABS: Basophils # 0.1 10^3/uL (0.0-0.1); Basophils % 0.8 %; Eosinophils # 0.2 10^3/uL (0.0-0.8); Eosinophils % 2.7 %; Hematocrit 42.8 % (42.0-52.0); Hemoglobin 14.5 g/dL (11.7-16.6); Lymphocytes # 4.4 10^3/uL (0.8-4.8); Lymphocytes % 49.3 %; Mean Corpuscular HGB Conc 33.9 g/dL (30.0-36.0); Mean Corpuscular Hemoglobin 29.7 pg (28.0-34.0); Mean Corpuscular Volume 87.5 fl (80-94); Mean Platelet Volume 9.1 fL (7.4-10.4); Monocytes # 0.8 10^3/uL (0.2-0.9); Monocytes % 8.8 %; Neutrophils # 3.38 10^3/uL (1.8-7.7); Neutrophils % 38.2 %; Nucleated Red Blood Cells % 0 %; Platelet Count 214 10^3/cmm (130-400); Red Blood Count 4.89 10^6/uL (4.1-5.3); Red Cell Distribution Width 13.6 % (12.1-15.1); White Blood Count 8.9 10^3/uL (4.0-10.0)
[2022-11-04 22:22] VITALS: BP 148/114
[2022-11-04] MEDS: cloNIDine 0.1 mg Tablet PO ×2 (22:22→23:27)
[2022-11-04 22:34] LABS: Troponin(5th) Baseline 6 ng/L (0-15)
[2022-11-04 22:42] LABS: Alanine Aminotransferase 16 U/L (0-41); Albumin Level 4.2 g/dL (3.5-5.2); Alkaline Phosphatase 69 U/L (40-130); Anion Gap 13.4 (5-19); Aspartate Amino Transferase 18 U/L (0-40); Blood Urea Nitrogen 13 mg/dL (6-20); Calcium 9.1 mg/dL (8.5-10.5); Carbon Dioxide 27 mmol/L (22-29); Chloride 103 mmol/L (98-107); Globulin 2.8 g/dL (1.3-4.6); Glucose 108 mg/dL (65-115); Lipase 47 U/L (13-60); NT Pro B Type Natriuretic Pept 36 pg/mL (0-125); Osmolality Calculated 291 mOsm/kg (285-295); Potassium 3.4 mmol/L (3.5-5.1); Sodium 140 mmol/L (136-145); Total Bilirubin 0.2 mg/dL (0.15-1.2)
[2022-11-04] MEDS: potassium chloride ER 20 mEq Tablet PO (23:27)
== END 2022-11-04 23:32 | disposition home or self-care (01) ==
PROVIDERS: Emergency Provider Nurse Practitioner Family; PCP Nurse Practitioner
DX: I10 Essential (primary) hypertension (principal); F17.210 Nicotine dependence, cigarettes, uncomplicated
CPT/HCPCS: 71045; 80053; 83690; 83880; 84484; 85025; 93005; 99285

== ENCOUNTER → 2023-08-01 10:17 | Outpatient (BNVA) | payer MEDICAID, OTHER, SELFPAY | PROVIDERS: PCP Nurse Practitioner; Visit Provider Nurse Practitioner | DX: I10 Essential (primary) hypertension (principal) | CPT/HCPCS: 80053; 80061 ==

== ENCOUNTER 2023-09-06 21:32 | Emergency (ER) | payer MEDICAID, SELFPAY ==
[2023-09-06 21:34] VITALS: BP 169/101; PULSE 91; RESP 16; TEMP 36.6; O2SAT 97
--- NOTE | 2023-09-06 23:36 | CTR_ITS ---
PROCEDURE INFORMATION: Exam: CT Neck With Contrast Exam date and time: 09/07/2023 12:59 AM Age: 38 years old Clinical indication: Dysphagia / difficulty swallowing; Patient HX: Patient says he noticed this weekend during vel that he was having trouble eating/swallowing, denies sore throat or recent cold but says the exterior(skin) or his neck hurts. ; Additional info: Neck pain and dysphagia TECHNIQUE: Imaging protocol: Computed tomography of the neck with contrast. Radiation optimization: All CT scans at this facility use at least one of these dose optimization techniques: automated exposure control; mA and/or kV adjustment per patient size (includes targeted exams where dose is matched to clinical indication); or iterative reconstruction. Contrast material: OMNI 350; Contrast volume: 80 ml; Contrast route: INTRAVENOUS (IV); REPORTING DATA: Count of CT and Cardiac NM exams in prior 12 months: This patient has received 0 known CTs and 0 known cardiac nuclear medicine studies in the 12 months prior to the current study. COMPARISON: CR XR chest 1V portable [id number] 11/04/2022 9:51 PM RADIATION DOSE METRICS: Total DLP (mGy-cm): 249.19 FINDINGS: Pharynx: Unremarkable. No significant tonsillar enlargement. Larynx: Prevertebral fluid extending from C1 to C6. Calcification within the prevertebral soft tissues at the C2 level. Mild retropharyngeal fluid/edema, likely sympathetic/reactive. Prevertebral and retropharyngeal spaces: See Larynx finding. Salivary glands: Normal. Thyroid: Unremarkable. Lymph nodes: No lymphadenopathy. Trachea: Visualized trachea is unremarkable. Lungs: Unremarkable as visualized. Bones/joints: No acute fracture. Multilevel cervical spondylosis. Soft tissues: Unremarkable. CT/CT neck w con* [id number] IMPRESSION: Findings of acute longus colli calcific tendinitis, also known as retropharyngeal or acute calcific prevertebral tendinitis.
--- NOTE | 2023-09-06 23:36 | W.ED.GENADLT ---
HPI - General Adult General: Chief complaint: General Medical Stated complaint: difficulty swallowing Time Seen by Provider: 09/06/23 23:03 History of Present Illness: 30 years old male presents emergency room with complaint of neck pain and difficulty swallowing within the past 6 to 7 days. Patient reveals that the pain started initially and described pain as aching sensation mostly on the lateral aspect of the neck and was seen and evaluated by chiropractor today. Pain subsided but patient noticed difficulty swallowing. Denies any cough, coughing up blood or vomiting blood no known sick contact recent foreign travel. Is any trauma or recent neck injury. No fever or chills. Associated symptoms: Deny dyspnea Review of Systems General: Reports: 10 or more systems reviewed and unremarkable except in HPI and below Const: Denies: fever(s), chills, body aches or change in appetite ENMT: Reports: throat pain, odynophagia and hoarseness; Denies: enlarged tonsils, mouth pain, swelling of lips/tongue, oral sores, dental pain, ear discharge, change in hearing, disequilibrium or nasal discharge Resp: Denies: dyspnea, productive cough, non-productive cough, wheezing, stridor, pain on inspiration, change in phlegm color, hemoptysis or chest congestion : Denies: flank pain or difficulty urinating Musc: Reports: neck pain; Denies: back pain, extremity pain, extremity swelling, joint pain, joint redness, joint warmth or joint stiffness PFSH ED PFSH: Medical History Cannabis use disorder Elevated blood pressure reading Essential hypertension Generalized anxiety disorder History of staph infection Major depressive disorder, recurrent, mild 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 Nicotine dependence, cigarettes, uncomplicated Psychiatric care Smoker Surgical History History of oral surgery Family History Father Hypertension Mother , age 47 Cancer ovarian Denies family history of Clotting disorder Anesthesia complication Bleeding disorder Social History Smoking and tobacco/nicotine status: current every day tobacco/nicotine user cigarettes Packs smoked per day: 0.5 Years cigarettes smoked: 15 Quit status (tobacco/nicotine): has tried quititng Number of times tried to quit tobacco: 3 Second hand smoke exposure: Yes Alcohol intake: former Substance/Drug Use: current Substance/Drug use frequency: daily Other substance/drug use details: Recreational. Adopted: No Caregiver/support person: No Lives independently: Yes Household members: spouse Housing: House Marital status: Number of children: 6 Highest education level completed: High School Graduate service: No Current occupational status: unemployed Pets and animals: Yes Do you think of yourself as: Straight/Heterosexual Current gender identity: Male Physical Exam Const: COMMON NORMALS: no acute distress, average body habitus, patient oriented x3, no limitations, healthy appearing, alert and well nourished Neck/C-Spine: COMMON NORMALS: full ROM, no lymphadenopathy, supple, no meningeal signs, no JVD, Thyroid normal and No carotid bruits GENERAL: Yes normal visual inspection, Yes trachea midline, No anterior neck swelling, No lymphadenopathy, Yes tender, No torticollis and No tracheal deviation THYROID: Thyroid normal, symmetrical and not diffusely enlarged CAROTIDS: Yes normal carotid upstroke Lymph: LYMPHATIC: no lymphadenopathy noted Chest: COMMONS NORMALS: normal inspection of the chest, normal palpation of entire chest wall, normal inspection of the breasts and normal palpation of the breasts Breast/axilla inspection: Yes normal inspection of the breasts BREAST/AXILLA PALPATION: Yes normal palpation of the breasts Resp: COMMON NORMALS: normal respiratory effort, No retractions, No use of accessory muscles, clear to auscultation bilaterally and percussion normal AUSCULTATION: clear to auscultation bilaterally PERCUSSION: percussion normal Cardio: COMMON NORMALS: no JVD Extremity: COMMON NORMALS: normal to inspection, full ROM, capillary refill normal, no joint enlargement, no clubbing, cyanosis or edema, no calf tenderness and no pedal edema Neuro: COMMON NORMALS: patient oriented x3 SENSORIUM/ORIENTATION: Yes alert MENINGEAL SIGNS: Yes no meningeal signs Course Vital Signs: Vital signs: Vital Signs Temperature 97.9 F 09/06/23 21:34 Pulse Rate 91 09/06/23 21:34 Respiratory Rate 16 09/06/23 21:34 Blood Pressure 169/101 09/06/23 21:34 Pulse Oximetry 97 09/06/23 21:34 [facility] - General Adult Medical Decision Making Patient made comfortable emergency room. CT scan of the neck was ordered. Patient is CBC, CMP, patient was given IV steroid and pain medication. I discussed the CT finding with the patient and close follow-up PCP recommended for further evaluation and treatment. Differential Diagnosis Torticollis, lymphadenopathy, strep throat, pharyngitis, tonsillitis, tonsillar abscess neck abscess neck mass thyromegaly Lab Data 09/06/23 23:52 09/06/23 23:[address] 09/06/23 23:36 IMPRESSION: Findings of acute longus colli calcific tendinitis, also known as retropharyngeal or acute calcific prevertebral tendinitis. Laboratory Results WBC 11.95 10^3/uL (3.29-11.43) H 09/06/23 23:52 RBC 4.45 10^6/uL (3.85-5.65) 09/06/23 23:52 Hgb 13.30 g/dL (11.27-16.99) 09/06/23 23:52 Hct 38.9 % (37-53) 09/06/23 23:52 MCV 87.4 fl (82-101) 09/06/23 23:52 MCH 29.9 pg (27-33) 09/06/23 23:52 MCHC 34.2 g/dL (30-55) 09/06/23 23:52 RDW 13.7 % (12.1-15.1) 09/06/23 23:52 Plt Count 184 10^3/cmm (157-399) 09/06/23 23:52 MPV 8.8 fL (7.4-10.4) 09/06/23 23:52 Neut % (Auto) 62.6 % 09/06/23 23:52 Lymph % (Auto) 27.3 % 09/06/23 23:52 [place] % (Auto) 7.8 % 09/06/23 23:52 Eos % (Auto) 1.3 % 09/06/23 23:52 Baso % (Auto) 0.7 % 09/06/23 23:52 Neut # (Auto) 7.48 10^3/uL (1.8-7.7) 09/06/23 23:52 Lymph # (Auto) 3.3 10^3/uL (0.8-4.8) 09/06/23 23:52 [place] # (Auto) 0.9 10^3/uL (0.2-0.9) 09/06/23 23:52 Eos # (Auto) 0.2 10^3/uL (0.0-0.8) 09/06/23 23:52 Baso # (Auto) 0.1 10^3/uL (0.0-0.1) 09/06/23 23:52 Nucleated RBC % (auto) 0 % 09/06/23 23:52 Nucleated RBCs # 0.0 /100WBC 09/06/23 23:52 Sodium 137 mmol/L (136-145) 09/06/23 23:52 Potassium 3.5 mmol/L (3.5-5.1) 09/06/23 23:52 Chloride 101 mmol/L (98-107) 09/06/23 23:52 Carbon Dioxide 26 mmol/L (22-29) 09/06/23 23:52 Anion Gap 13.5 (5-19) 09/06/23 23:52 BUN 11 mg/dL (6-20) 09/06/23 23:52 Creatinine 0.8 mg/dL (0.7-1.2) 09/06/23 23:52 GFR Calculation 108.2 mL/min (90-130) 09/06/23 23:52 Glucose 117 mg/dL (65-115) H 09/06/23 23:52 Calculated Osmolality 284 mOsm/kg (285-295) L 09/06/23 23:52 Calcium 9.1 mg/dL (8.5-10.5) 09/06/23 23:52 Total Bilirubin 0.3 mg/dL (0.15-1.2) 09/06/23 23:52 AST 18 U/L (0-40) 09/06/23 23:52 ALT 20 U/L (0-41) 09/06/23 23:52 Alkaline Phosphatase 81 U/L (40-130) 09/06/23 23:52 Total Protein 7.3 g/dL (6.6-8.7) 09/06/23 23:52 Albumin 4.3 g/dL (3.5-5.2) 09/06/23 23:52 Globulin 3.0 g/dL (1.3-4.6) 09/06/23 23:52 All radiology interpretation(s) finalized by discharge Discharge Plan Discharge Patient Disposition: Home Clinical Impression: Calcific tendinitis, Odynophagia Condition: Stable Prescriptions: New Medrol (Gaetano) 4 mg tablets,dose pack 4 mg PO DAILY Qty: 21 0RF naproxen 500 mg tablet 500 mg PO BID PRN (Reason: pain) Qty: 20 0RF No Action aripiprazole 5 mg tablet See Rx Instructions .ROUTE .COMPLEX Qty: 30 2RF Dose Instruction: TAKE ONE TABLET BY MOUTH EVERY DAY Rx Instructions: TAKE ONE TABLET BY MOUTH EVERY DAY citalopram 40 mg tablet See Rx Instructions .ROUTE .COMPLEX Qty: 30 2RF Dose Instruction: TAKE ONE TABLET BY MOUTH EVERY DAY Rx Instructions: TAKE ONE TABLET BY MOUTH EVERY DAY valsartan [Diovan] 80 mg tablet 80 mg PO DAILY Qty: 30 5RF acetaminophen 500 mg Tablet 1,000 mg PO Q6H PRN (Reason: Pain) ibuprofen 200 mg Tablet 400 mg PO Q6H PRN (Reason: Pain) Vitamin B-1 (mononitrate) 100 mg Tablet 100 mg PO DAILY 30 Days Qty: 30 1RF Discharge Orders: Discharge ED (Routine); Ordered 09/07/23 Ordered By: Antione Schulte Referrals: Mika Campbell, [employer] [Primary Care Provider] - Discharge Diet: Advance as tolerated Discharge Activity: Resume usual activity Patient Instructions: Opioid Safety, Pain Management Coding Level of Care Code ED Street Light Repairer for Conor Castillo
[2023-09-06 23:57] LABS: Basophils # 0.1 10^3/uL (0.0-0.1); Basophils % 0.7 %; Eosinophils # 0.2 10^3/uL (0.0-0.8); Eosinophils % 1.3 %; Hematocrit 38.9 % (37-53); Lymphocytes # 3.3 10^3/uL (0.8-4.8); Lymphocytes % 27.3 %; Mean Corpuscular HGB Conc 34.2 g/dL (30-55); Mean Corpuscular Hemoglobin 29.9 pg (27-33); Mean Corpuscular Volume 87.4 fl (82-101); Mean Platelet Volume 8.8 fL (7.4-10.4); Monocytes # 0.9 10^3/uL (0.2-0.9); Monocytes % 7.8 %; Neutrophils # 7.48 10^3/uL (1.8-7.7); Neutrophils % 62.6 %; Nucleated Red Blood Cells % 0 %; Platelet Count 184 10^3/cmm (157-399); Red Blood Count 4.45 10^6/uL (3.85-5.65); Red Cell Distribution Width 13.7 % (12.1-15.1); White Blood Count 11.95 10^3/uL (3.29-11.43)
[2023-09-07 00:13] LABS: Alanine Aminotransferase 20 U/L (0-41); Albumin Level 4.3 g/dL (3.5-5.2); Alkaline Phosphatase 81 U/L (40-130); Anion Gap 13.5 (5-19); Aspartate Amino Transferase 18 U/L (0-40); Blood Urea Nitrogen 11 mg/dL (6-20); Calcium 9.1 mg/dL (8.5-10.5); Carbon Dioxide 26 mmol/L (22-29); Chloride 101 mmol/L (98-107); Glomerular Filtration Rate 108.2 mL/min (90-130); Glucose 117 mg/dL (65-115); Osmolality Calculated 284 mOsm/kg (285-295); Potassium 3.5 mmol/L (3.5-5.1); Sodium 137 mmol/L (136-145); Total Bilirubin 0.3 mg/dL (0.15-1.2); Total Protein 7.3 g/dL (6.6-8.7)
[2023-09-07] MEDS: iohexol 350 mg/mL 500 mL Btl (per mL) IV (01:04)
[2023-09-07] MEDS: ketorolac 30 mg/mL INJ IVP (02:49)
[2023-09-07] MEDS: dexamethasone 10 mg/mL INJ IVP (02:49)
== END 2023-09-07 03:02 | disposition home or self-care (01) ==
PROVIDERS: Emergency Provider Family Medicine; PCP Nurse Practitioner
DX: M65.20 Calcific tendinitis, unspecified site (principal); R13.10 Dysphagia, unspecified; I10 Essential (primary) hypertension; F17.210 Nicotine dependence, cigarettes, uncomplicated
CPT/HCPCS: 36415; 70491; 80053; 85025; 96374; 96375; 99285; J1100; J1885; Q9967

== ENCOUNTER → 2024-02-21 09:26 | Outpatient (BNVA) | payer MEDICAID, SELFPAY | PROVIDERS: PCP Nurse Practitioner; Visit Provider Nurse Practitioner | DX: I10 Essential (primary) hypertension (principal) | CPT/HCPCS: 80053 ==

== ENCOUNTER → 2024-07-11 08:23 | Outpatient (BNVA) | payer MEDICAID, SELFPAY | PROVIDERS: PCP Nurse Practitioner; Visit Provider Clinical Nurse Specialist Adult Health | DX: I10 Essential (primary) hypertension (principal) | CPT/HCPCS: 80053; 80061; 85025 ==

== ENCOUNTER 2024-11-04 18:26 | Emergency (ER) | payer MEDICAID, SELFPAY ==
[2024-11-04 18:32] VITALS: BP 125/80; PULSE 81; RESP 16; TEMP 36.6; O2SAT 95; BMI 10.5
[2024-11-04 19:00] VITALS: BP 134/84; PULSE 72; O2SAT 95
--- NOTE | 2024-11-04 19:05 | CTR_ITS ---
PROCEDURE INFORMATION: Exam: CT Head Without Contrast Exam date and time: 11/04/2024 7:19 PM Age: 39 years old Clinical indication: Altered mental status/memory loss; Amnesia, retrograde; Increasing episodes of transient amnesia. ; Additional info: Memory loss, transient TECHNIQUE: Imaging protocol: Computed tomography of the head without contrast. Radiation optimization: All CT scans at this facility use at least one of these dose optimization techniques: automated exposure control; mA and/or kV adjustment per patient size (includes targeted exams where dose is matched to clinical indication); or iterative reconstruction. COMPARISON: CT neck w con* [id number] 09/07/2023 12:59 AM RADIATION DOSE METRICS: Total DLP (mGy-cm): 1119.93 FINDINGS: Brain: Normal. No hemorrhage. Unremarkable white matter. No mass effect. Cerebral ventricles: No ventriculomegaly. Paranasal sinuses: Visualized sinuses are unremarkable. No fluid levels. Mastoid air cells: Visualized mastoid air cells are well aerated. Bones: Unremarkable. No acute fracture. Soft tissues: Unremarkable. CT/CT head wo con* [id number] IMPRESSION: Unremarkable noncontrast head CT.
--- NOTE | 2024-11-04 19:38 | ED_ITS ---
HPI - General Adult 2 General: Chief complaint: General Medical Stated complaint: amnesia Time Seen by Provider: 11/04/24 18:28 History of Present Illness: 39-year-old male patient who evidently h as been under a lot of stress. This afternoon, he was with his father and complained of a cold chill up his spine. He walked outside to drive home. On his drive home, he kept asking his children where they were going even though he was the one driving. He swerved, and did not seem to know the way home. They made at home. He was still asking questions like what happened? , How did we get here? . He does not complain of a headache. No visual changes. No speech problems. No trouble walking. No weakness or numbness or tingling. He evidently had a similar episode 3 months ago or so while in [place]. Related Data Home Medications ?Medication ?Instructions ?Recorded ?Confirmed acetaminophen 500 mg tablet 1,000 mg PO Q6H PRN Pain 0 04/02/22 10/24/24 Previous Rx's ?Medication ?Instructions ?Recorded thiamine mononitrate (vit B1) 100 100 mg PO DAILY 30 d ays #30 tabs 04/08/22 mg tablet (Vitamin B-1 (mononitrate)) terbinafine HCl 250 mg tablet 250 mg PO DAILY #21 tabs 04/30/24 aspirin 81 mg tablet,delayed 81 mg PO DAILY #30 tabs 1 10/30/23 release (Adult Low Dose Aspirin) chlorhexidine gluconate 0.12 % 15 ml buccal BID #120 m L 08/29/24 mouthwash (Peridex) rosuvastatin 5 mg tablet (Crestor) 5 mg PO DAILY #30 t abs 08/29/24 valsartan 160 mg tablet (Diovan) 160 mg PO DAILY #30 t abs 08/29/24 aripiprazole 5 mg tablet See Rx Instructions .Route 0 10/04/24 .COMPLEX #30 tabs citalopram 40 mg tablet See Rx Instructions .Route 0 10/04/24 .COMPLEX #30 tabs Allergies Allergy/AdvReac Type Severity Reaction Status Date / Time No Known Allergies Allergy Verified 10/24/24 08:09 [facility] ED 2 PFSH: Medical History Alcohol use disorder in remission Major depressive disorder, recurrent, mild Cannabis use disorder 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 Nicotine dependence, cigarettes, uncomplicated Psychiatric care Essential hypertension Generalized anxiety disorder History of staph infection Smoker Elevated blood pressure reading Surgical History History of oral surgery Family History Father Hypertension Mother , age 47 Cancer ovarian Denies family history of Clotting disorder Anesthesia complication Bleeding disorder Social History Smoking and tobacco/nicotine status: current every day tobacco/nicotine user cigarettes Packs smoked per day: 0.5 Years cigarettes smoked: 15 Quit status (tobacco/nicotine): has tried quititng Number of times tried to quit tobacco: 3 Second hand smoke exposure: Yes Alcohol intake: former Substance/Drug Use: current Substance/Drug use frequency: daily Other substance/drug use details: Recreational. Adopted: No Caregiver/support person: No Lives independently: Yes Household members: spouse Housing: House Marital status: Number of children: 6 Highest education level completed: High School Graduate service: No Current occupational status: unemployed Pets and animals: Yes Do you think of yourself as: Straight/Heterosexual Current gender identity: Male Physical Exam 2 Const: COMMON NORMALS: no acute distress and alert GENERAL APPEARANCE: c ooperative; not ill appearing and not frail appearing ORIENTATION/CONSCIOUSNESS: Yes oriented to person, Yes oriented to place and Yes oriented to time HENMT: COMMON NORMALS: normocephalic, atraumatic and Normal external nose present HEAD & SCALP: normocephalic and atraumatic FACE & SINUS: normal facial exam and face symmetric NOSE: Normal external nose present Eye: COMMON NORMALS: Equal, round and reactive pupils present and EOMs intact bilaterally PUPIL: Yes Equal, round and reactive pupils present Neck/C-Spine: GENERAL: Yes trachea midline Chest: CHEST: Yes Symmetrical chest wall rise Resp: COMMON NORMALS: normal respiratory effort, No retractions, No use of accessory muscles and clear to auscultation bilaterally AUSCULTATION: clear to auscultation bilaterally Cardio: COMMON NORMALS: regular rate and regular rhythm RATE: regular rate RHYTHM: regular rhythm GI: COMMON NORMALS: Normal to inspection, nondistended, normoactive bowel sounds present Extremity: COMMON NORMALS: no pedal edema Neuro: JOMAR COMA SCALE: document GCS findings Jomar coma scale eye opening: Spontaneous [place] coma scale verbal response: Orientated [place] coma scale motor response: Obey commands [place] coma scale total score: 15 S ENSORIUM/ORIENTATION: Yes alert, Yes oriented to person, Yes oriented to place and Yes oriented to time CRANIAL NERVES: Yes CN normal except as noted C OORDINATION/BALANCE: [id number] test normal and [id number] test normal SPEECH: speech normal SENSORY EXAM: Yes extremities (intact) MOTOR EXAM: 5 /5 motor strength present throughout and Pronator motor function not present COORDINATION: [id number] test normal and [id number] test normal Psych: COMMON NORMALS: speech normal SPEECH: Yes normal speech Skin: COMMON NORMALS: no rashes or lesions noted GENERAL SKIN EXAM: no rashes or lesions noted Course 2 Vital Signs: Vital signs: Vital Signs Temperature 97.9 F 11/04/24 18:32 Pulse Rate 84 11/04/24 21:01 Respiratory Rate 18 11/04/24 19:58 Blood Pressure 113/70 11/04/24 21:01 Pulse Oximetry 95 11/04/24 21:01 Oxygen Delivery Me thod Room Air 11/04/24 19:58 [facility] - General Adult Medical Decision Making Differential includes transient ischemic attack, transient global amnesia, partial seizure, encephalopathy, conversion disorder, intoxication. With repetitive questions, no other neurological defects, etc, clinical diagnosis points towards transient global amnesia. Workup in progress. Head CT is negative. Laboratories not remarkable. No evidence of cellulitis. No recurrence of symptoms. He is positive for marijuana only. Likely stress related transient global amnesia. Will ask case management to get the patient neurology follow-up. Lab Data 11/04/24 19:36 11/04/24 19:[address] 11/04/24 19:05 IMPRESSION: Unremarkable noncontrast head CT. Laboratory Results WBC 10.17 10^3/uL (3.29-11.43) 11/04/24 19:36 RBC 4.97 10^6/uL (3.85-5.65) 11/04/24 19:36 Hgb 14.90 g/dL (11.27-16.99) 11/04/24 19:36 Hct 43.4 % (37-53) 11/04/24 19:36 MCV 87.3 fl (82-101) 11/04/24 19:36 MCH 30.0 pg (27-33) 11/04/24 19:36 MCHC 34.3 g/dL (30-55) 11/04/24 19:36 RDW 13.8 % (12.1-15.1) 11/04/24 19:36 Plt Count 203 10^3/cmm (157-399) 11/04/24 19:36 MPV 8.7 fL (7.4-10.4) 11/04/24 19:36 Neut % (Auto) 66.6 % 11/04/24 19:36 Lymph % (Auto) 26.2 % 11/04/24 19:36 Teller % (Auto) 5.4 % 11/04/24 19:36 Eos % (Auto) 1.0 % 11/04/24 19:36 Baso % (Auto) 0.6 % 11/04/24 19:36 Neut # (Auto) 6.78 10^3/uL (1.8-7.7) 11/04/24 19:36 Lymph # (Auto) 2.7 10^3/uL (0.8-4.8) 11/04/24 19:36 Teller # (Auto) 0.6 10^3/uL (0.2-0.9) 11/04/24 19:36 Eos # (Auto) 0.1 10^3/uL (0.0-0.8) 11/04/24 19:36 Baso # (Auto) 0.1 10^3/uL (0.0-0.1) 11/04/24 19:36 Nucleated RBC % (auto) 0 % 11/04/24 19:36 Nucleated RBCs # 0.0 /100WBC 11/04/24 19:36 PT 13.30 SECONDS (12.1-14.9) 11/04/24 19:36 INR 0.94 (0.8-1.2) 11/04/24 19:36 APTT 30.2 SECONDS (23.9-36.7) 11/04/24 19:36 Sodium 139 mmol/L (136-145) 11/04/24 19:36 Potassium 3.8 mmol/L (3.5-5.1) 11/04/24 19:36 Chloride 105 mmol/L (98-107) 11/04/24 19:36 Carbon Dioxide 26 mmol/L (22-29) 11/04/24 19:36 Anion Gap 11.8 (5-19) 11/04/24 19:36 BUN 11 mg/dL (6-20) 11/04/24 19:36 Creatinine 0.9 mg/dL (0.7-1.2) 11/04/24 19:36 GFR Calculation 93.9 mL/min (90-130) 11/04/24 19:36 Glucose 116 mg/dL (65-115) H 11/04/24 19:36 Calculated Osmolality 288 mOsm/kg (285-295) 11/04/24 19:36 Calcium 9.0 mg/dL (8.5-10.5) 11/04/24 19:36 Phosphorus 2.6 mg/dL (2.5-4.5) 11/04/24 19:36 Magnesium 2.1 mg/dL (1.7-2.3) 11/04/24 19:36 Total Bilirubin 0.4 mg/dL (0.15-1.2) 11/04/24 19:36 AST 18 U/L (0-40) 11/04/24 19:36 ALT 15 U/L (0-41) 11/04/24 19:36 Alkaline Phosphatase 69 U/L (40-130) 11/04/24 19:36 Ammonia 18 umol/L (16-60) 11/04/24 19:36 Creatine Kinase 129 U/L (39-308) 11/04/24 19:36 C-Reactive Protein 4.6 mg/L (0.0-4.9) 11/04/24 19:36 Total Protein 7.4 g/dL (6.6-8.7) 11/04/24 19:36 Albumin 4.3 g/dL (3.5-5.2) 11/04/24 19:36 Globulin 3.1 g/dL (1.3-4.6) 11/04/24 19:36 Urine Color Yellow (Yellow) 11/04/24 20:30 Urine Appearance Clear (CLEAR) 11/04/24 20:30 Urine pH 6.0 (5-7) 11/04/24 20:30 Ur Specific [place] 1.019 (1.005-1.030) 11/04/24 20:30 Urine Protein Negative (Negative) 11/04/24 20:30 Urine Glucose (UA) Negative (Normal) 11/04/24 20:30 Urine Ketones Trace (Negative) 11/04/24 20:30 Urine Blood Negative (Negative) 11/04/24 20:30 Urine Nitrate Negative (Negative) 11/04/24 20:30 Urine Bilirubin Negative (Negative) 11/04/24 20:30 Urine Urobilinogen 1.0 mg/dL (Negative) 11/04/24 20:30 Ur Leukocyte Esterase Negative (Negative) 11/04/24 20:30 Amorphous Sediment Not Reportable 11/04/24 20:30 Salicylates < 0.3 mg/dL (3-10) L 11/04/24 19:36 Urine Opiates Screen Negative ng/mL (Negative) 11/04/24 20:30 Acetaminophen < 5.0 ug/mL (10-30) L 11/04/24 19:36 Ur Barbiturates Screen Negative ng/mL (Negative) 11/04/24 20:30 Ur Phencyclidine Scrn Negative ng/mL (Negative) 11/04/24 20:30 Ur Amphetamines Screen Negative ng/mL (Negative) 11/04/24 20:30 U Benzodiazepines Scrn Negative ng/mL (Negative) 11/04/24 20:30 Urine Cocaine Screen Negative ng/mL (Negative) 11/04/24 20:30 U Marijuana (THC) Screen Positive ng/mL (Negative) H 11/04/24 20:30 Ethyl Alcohol < 10 mg/dL (0-10) 11/04/24 19:36 All radiology interpretation(s) finalized by discharge Discharge Plan Discharge Patient Disposition: Home Clinical Impression: Amnesia, global, transient Condition: Stable Prescriptions: No Action terbinafine HCl 250 mg tablet 250 mg PO DAILY Qty: 21 1RF Rx Instructions: take 1 tab for one week per month for 3 months valsartan [Diovan] 160 mg tablet 160 mg PO DAILY Qty: 30 2RF rosuvastatin [Crestor] 5 mg tablet 5 mg PO DAILY Qty: 30 2RF aspirin [Adult Low Dose Aspirin] 81 mg tablet,delayed release (DR/EC) 81 mg PO DAILY Qty: 30 2RF chlorhexidine gluconate [Peridex] 0.12 % mouthwash 15 ml buccal BID Qty: 120 2RF aripiprazole 5 mg tablet See Rx Instructions .ROUTE .COMPLEX Qty: 30 2RF Dose Instruction: TAKE ONE TABLET BY MOUTH EVERY DAY Rx Instructions: TAKE ONE TABLET BY MOUTH EVERY DAY citalopram 40 mg tablet See Rx Instructions .ROUTE .COMPLEX Qty: 30 2RF Dose Instruction: TAKE ONE TABLET BY MOUTH EVERY DAY Rx Instructions: TAKE ONE TABLET BY MOUTH EVERY DAY acetaminophen 500 mg Tablet 1,000 mg PO Q6H PRN (Reason: Pain) Vitamin B-1 (mononitrate) 100 mg Tablet 100 mg PO DAILY 30 Days Qty: 30 1RF Discharge Orders: Discharge ED (Routine); Ordered 11/04/24 Ordered By: Jaylon Staley Referrals: Mika Campbell, [facility] [Primary Care Provider] - 1-3 days Patient Instructions: Transient Global Amnesia (ED), Opioid Safety, Pain Management Activity Restrictions/Additional Instructions: Case management has been asked to make an appointment for you with neurology for follow-up. You should get a call from them this coming week. Return for any problems. Try to decrease your stress level for the next few days as much as possible. See your doctor this week. Print Language: Czech Coding Level of Care Code ED Clinical Support Tech for Conor Castillo
[2024-11-04 19:48] LABS: Basophils # 0.1 10^3/uL (0.0-0.1); Basophils % 0.6 %; Eosinophils # 0.1 10^3/uL (0.0-0.8); Hematocrit 43.4 % (37-53); Lymphocytes # 2.7 10^3/uL (0.8-4.8); Lymphocytes % 26.2 %; Mean Corpuscular HGB Conc 34.3 g/dL (30-55); Mean Corpuscular Volume 87.3 fl (82-101); Mean Platelet Volume 8.7 fL (7.4-10.4); Monocytes # 0.6 10^3/uL (0.2-0.9); Monocytes % 5.4 %; Neutrophils # 6.78 10^3/uL (1.8-7.7); Neutrophils % 66.6 %; Nucleated Red Blood Cells % 0 %; Platelet Count 203 10^3/cmm (157-399); Red Blood Count 4.97 10^6/uL (3.85-5.65); Red Cell Distribution Width 13.8 % (12.1-15.1); White Blood Count 10.17 10^3/uL (3.29-11.43)
--- NOTE | 2024-11-04 19:57 | PC.NURSE ---
asked pt for urine sample, pt states not at this time. will retry.
[2024-11-04 19:58] VITALS: BP 120/79; PULSE 77; RESP 18; O2SAT 94
[2024-11-04 19:58] LABS: INR 0.94 (0.8-1.2)
[2024-11-04 19:59] LABS: Partial Thromboplastin Time 30.2 SECONDS (23.9-36.7)
[2024-11-04 20:01] LABS: Ammonia 18 umol/L (16-60)
[2024-11-04 20:02] LABS: Alanine Aminotransferase 15 U/L (0-41); Albumin Level 4.3 g/dL (3.5-5.2); Alkaline Phosphatase 69 U/L (40-130); Anion Gap 11.8 (5-19); Aspartate Amino Transferase 18 U/L (0-40); Blood Urea Nitrogen 11 mg/dL (6-20); C Reactive Protein 4.6 mg/L (0.0-4.9); Carbon Dioxide 26 mmol/L (22-29); Chloride 105 mmol/L (98-107); Creatine Phosphokinase 129 U/L (39-308); Creatinine Clr Calc Pharmacy 116.6534; Globulin 3.1 g/dL (1.3-4.6); Glomerular Filtration Rate 93.9 mL/min (90-130); Glucose 116 mg/dL (65-115); Magnesium 2.1 mg/dL (1.7-2.3); Osmolality Calculated 288 mOsm/kg (285-295); Phosphorus 2.6 mg/dL (2.5-4.5); Potassium 3.8 mmol/L (3.5-5.1); Sodium 139 mmol/L (136-145); Total Bilirubin 0.4 mg/dL (0.15-1.2); Total Protein 7.4 g/dL (6.6-8.7)
[2024-11-04 20:09] LABS: Acetaminophen < 5.0 ug/mL (10-30); Alcohol Level < 10 mg/dL (0-10); Salicylate < 0.3 mg/dL (3-10)
[2024-11-04 20:38] LABS: Add Urine Microscopic? NO
[2024-11-04 20:42] LABS: Bilirubin Urine Negative (Negative); Blood Urine Negative (Negative); Glucose Urine UA Negative (Normal); Ketones Urine Trace (Negative); Leukocyte Esterase Urine Negative (Negative); Nitrate Urine Negative (Negative); Protein Urine Negative (Negative); Specific Gravity, Urine 1.019 (1.005-1.030); Urine Appearance Clear (CLEAR); Urine Color Yellow (Yellow)
[2024-11-04 20:44] LABS: Charge for UA Resulting for Rev
[2024-11-04 20:49] LABS: Amphetamines Screen Urine Negative (Negative); Barbiturates Screen Urine Negative (Negative); Benzodiazepines Screen Urine Negative (Negative); Cocaine Screen Urine Negative (Negative); Opiate Screen Urine Negative (Negative); PCP Screen Urine Negative (Negative); THC Screen Urine Positive (Negative)
[2024-11-04 21:01] VITALS: BP 113/70; PULSE 84; O2SAT 95
--- NOTE | 2024-11-05 07:24 | DCPLANNER ---
messaged neuro for er f/u
== END 2024-11-04 21:02 | disposition home or self-care (01) ==
PROVIDERS: Emergency Provider Emergency Medicine; PCP Nurse Practitioner
DX: G45.4 Transient global amnesia (principal); Z79.82 Long term (current) use of aspirin; F17.210 Nicotine dependence, cigarettes, uncomplicated; I10 Essential (primary) hypertension
CPT/HCPCS: 36415; 70450; 80053; 80306; 80307; 81003; 82140; 82550; 83735; 84100; 85025; 85610; 85730; 86140; 99284

== ENCOUNTER 2025-03-07 20:08 | Emergency (ER) | payer MEDICAID, SELFPAY ==
--- OUTSIDE RECORDS SUMMARY | 2022-01-22 09:00 | XMS_ITS | Continuity of Care Document ---
Author Organization [facility] Address [address] [id number] [address] Phone Care Team Providers Care Building Insulation Installer Name Role Phone Unavailable Unavailable Unavailable Allergies, [...] Diagnoses Date Provider Providers Copied on Encounter [facility], [id number]-Ul [place], [id number], [place] tel:[phone] [facility] No Information 2 No Information [facility], [id number][place], [id number], [place] tel:[phone] [facility] Encounter for dental exam and cleaning w/o abnormal findings 2 No Information [facility], [id number] [id number]-Sr [place], [id number], [place] tel:[phone] [facility] Encounter for dental exam and cleaning w/o abnormal findings 2 No Information [facility], [id number]-Qw [place], [id number], [place] tel:[phone] [facility] Encounter for dental exam and cleaning w/o abnormal findings 1 No Information [facility], [id number]-Hc [facility], [place], [place], [id number], [place] tel:[phone] [facility] Encounter for dental exam and cleaning w/o abnormal findings 1 No Information [facility], [id number]-If [facility], [place], [place], [id number], [place] tel:[phone] [facility] Encounter for dental exam and cleaning w/o abnormal findings 1 No Information [facility], [id number] [id number]-Np [facility], [place], [place], [id number], [place] tel:[phone] [facility] Encounter for dental exam and cleaning w/o abnormal findings 1 No Information Family History Family Member Type Diagnosis Age At Onset No Information Payers Payer name Insurance type Covered libertarian ID Authoriza tion(s) No Information Social History [...]
[2025-03-07 20:11] VITALS: BP 147/84; PULSE 82; TEMP 36.9; O2SAT 95; BMI 26.6
[2025-03-07 21:34] VITALS: BP 128/85; PULSE 81; O2SAT 96
[2025-03-07] MEDS: zonisamide 100 MG Capsule 400 MG PO (22:30)
[2025-03-07 22:32] VITALS: BP 122/88; PULSE 77; O2SAT 96
--- NOTE | 2025-03-08 06:59 | ED_ITS ---
HPI - General Adult General: Chief complaint: General Medical Stated complaint: blacking out. lapses in memory 4 times today Time Seen by Provider: 03/07/25 21:30 History of Present Illness: 43 year old with episodes of blackouts a nd amnesia, increasing in frequency and duration, with four episodes occurring today, including one lasting approximately three hours. During these episodes, patient remains able to perform complex tasks such as driving and working but has no recollection of the events. Family reports patient appears alert but is confused, forgetful, and sometimes stares blankly, with no associated headache or pain. Patient has a history of minor memory lapses over the past year, but recent episodes are more severe and prolonged. No reported convulsive activity, and patient denies headache or pain during or after episodes. Family is concerned due to impact on work, safety, and ability to care for children. Patient?s daughter is disabled and on a feeding tube. There is a history of similar episodes in the family, including two children with epilepsy and a brother with epilepsy. Patient previously had a non-contrast CT in October for possible stroke, which was negative. Family reports a recent abnormal heart monitor result but no details provided. Related Data Home Medications ?Medication ?Instructions ?Recorded ?Confirmed acetaminophen 500 mg tablet 1,000 mg PO Q6H PRN Pain 0 04/02/22 01/23/25 Previous Rx's ?Medication ?Instructions ?Recorded terbinafine HCl 250 mg tablet 250 mg PO DAILY #21 tabs 04/30/24 aspirin 81 mg tablet,delayed 81 mg PO DAILY #30 tabs 1 10/30/23 release (Adult Low Dose Aspirin) rosuvastatin 5 mg tablet (Crestor) 5 mg PO DAILY #30 t abs 11/15/24 valsartan 160 mg tablet (Diovan) 160 mg PO DAILY #30 t abs 11/15/24 aripiprazole 5 mg tablet See Rx Instructions .Route 0 01/23/25 .COMPLEX #30 tabs citalopram 40 mg tablet See Rx Instructions .Route 0 01/23/25 .COMPLEX #30 tabs zonisamide 100 mg capsule 400 mg (4 x 100 mg) PO DAILY 03/07/25 (Zonegran) seizure like activiy 30 days #120 caps Allergies Allergy/AdvReac Type Severity Reaction Status Date / Time No Known Allergies Allergy Verified 03/07/25 20:18 PFSH ED PFSH: Medical History Alcohol use disorder in remission Major depressive disorder, recurrent, mild Cannabis use disorder 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 Nicotine dependence, cigarettes, uncomplicated Psychiatric care Essential hypertension Generalized anxiety disorder History of staph infection Smoker Elevated blood pressure reading Surgical History History of oral surgery Family History Father Hypertension Mother , age 47 Cancer ovarian Denies family history of Clotting disorder Anesthesia complication Bleeding disorder Social History Smoking and tobacco/nicotine status: current every day tobacco/nicotine user cigarettes Packs smoked per day: 0.5 Years cigarettes smoked: 15 Quit status (tobacco/nicotine): has tried quititng Number of times tried to quit tobacco: 3 Second hand smoke exposure: Yes Alcohol intake: former Substance/Drug Use: current Substance/Drug use frequency: daily Other substance/drug use details: Recreational. Adopted: No Caregiver/support person: No Lives independently: Yes Household members: spouse Housing: House Marital status: Number of children: 6 Highest education level completed: High School Graduate service: No Current occupational status: unemployed Pets and animals: Yes Do you think of yourself as: Straight/Heterosexual Current gender identity: Male Physical Exam Const: COMMON NORMALS: no acute distress, patient oriented x3 and alert HENMT: COMMON NORMALS: normocephalic and atraumatic HEAD & SCALP: normocephalic and atraumatic Eye: COMMON NORMALS: Equal, round and reactive pupils present, EOMs intact bilaterally and no scleral icterus PUPIL: Yes Equal, round and reactive pupils present Resp: COMMON NORMALS: normal respiratory effort and No retractions Cardio: COMMON NORMALS: regular rate, regular rhythm and No murmurs present (Cardio) RATE: regular rate RHYTHM: regular rhythm GI: COMMON NORMALS: Normal to inspection, nondistended, normoactive bowel sounds present, Soft to palpation and non-tender PALPATION: Yes Soft to p alpation Neuro: COMMON NORMALS: patient oriented x3 SENSORIUM/ORIENTATION: Yes alert Skin: COMMON NORMALS: no rashes or lesions noted GENERAL SKIN EXAM: no rashes or lesions noted Course Vital Signs: Vital signs: Vital Signs Temperature 98.5 F 03/07/25 20:11 Pulse Rate 77 03/07/25 22:32 Blood Pressure 122/88 03/07/25 22:32 Pulse Oximetry 96 03/07/25 22:32 Oxygen Delivery Me thod Room Air 03/07/25 20:11 [facility] - General Adult Medical Decision Making In summary, patient is a generally well-appearing 39-year-old male with no current seizure-like activity but who has had multiple events in the past co ncerning for absence seizure's. recounts 4 such events just today, 1 of which occurred while driving with his children in the car. There is a strong family history of epilepsy. I spoke with on-call neurology who recommends starting Zonegran and outpatient follow-up. I think this is reasonable. Patient has a good understanding of seizures and will not drive or partake in risky activities until such time that he has been definitively diagnosed. He will be given 40 mg Zonegran daily and knows that he is always welcome back to the emergency department if needed before outpatient follow-up. No radiology studies performed this visit Discharge Plan Discharge Patient Disposition: Home Clinical Impression: Observed seizure-like activity Condition: Stable Prescriptions: New zonisamide [Zonegran] 100 mg capsule 400 mg PO DAILY 30 Days Qty: 120 0RF No Action aripiprazole 5 mg tablet See Rx Instructions .ROUTE .COMPLEX Qty: 30 2RF Dose Instruction: TAKE ONE TABLET BY MOUTH EVERY DAY Rx Instructions: TAKE ONE TABLET BY MOUTH EVERY DAY citalopram 40 mg tablet See Rx Instructions .ROUTE .COMPLEX Qty: 30 2RF Dose Instruction: TAKE ONE TABLET BY MOUTH EVERY DAY Rx Instructions: TAKE ONE TABLET BY MOUTH EVERY DAY terbinafine HCl 250 mg tablet 250 mg PO DAILY Qty: 21 1RF Rx Instructions: take 1 tab for one week per month for 3 months aspirin [Adult Low Dose Aspirin] 81 mg tablet,delayed release (DR/EC) 81 mg PO DAILY Qty: 30 2RF rosuvastatin [Crestor] 5 mg tablet 5 mg PO DAILY Qty: 30 5RF valsartan [Diovan] 160 mg tablet 160 mg PO DAILY Qty: 30 5RF acetaminophen 500 mg Tablet 1,000 mg PO Q6H PRN (Reason: Pain) Discharge Orders: Discharge ED (Routine); Ordered 03/07/25 Ordered By: Rudy Dewitt Referrals: Mika Campbell, [employer] [facility] [Primary Care Provider, [facility]] Discharge Diet: Usual diet Discharge Activity: Increase activity as tolerated Patient Instructions: Patient Portal & Ashley Instructions, Absence Seizure Activity Restrictions/Additional Instructions: Your symptoms are highly concerning for absence seizure. Please keep your appointment with the neurologist so that you can Undergo EEG and MRI of the brain for definitive diagnosis. Print Language: Tamazight Coding Level of Care Code ED Optical Fabrication Technician for Conor Castillo
== END 2025-03-07 22:33 | disposition home or self-care (01) ==
PROVIDERS: Emergency Provider Student in an Organized Health Care Education/Training Program; PCP Nurse Practitioner
DX: R56.9 Unspecified convulsions (principal); Z79.82 Long term (current) use of aspirin; F17.210 Nicotine dependence, cigarettes, uncomplicated; I10 Essential (primary) hypertension
CPT/HCPCS: 99283; J9999

== ENCOUNTER 2025-03-08 10:13 | Emergency (ER) | payer MEDICAID, SELFPAY ==
--- OUTSIDE RECORDS SUMMARY | 2022-01-22 09:00 | XMS_ITS | Continuity of Care Document ---
Author Organization [facility] Address [id number] [address] Phone Care Team Providers Care Website Designer Name Role Phone Unavailable Unavailable Unavailable Allergies, Adverse Reactions, Alerts Substance Reaction Status Criticality No Known Allergies Active No Inform ation Medications Medication Instructions Dosage Effective Dates (start - stop) Status Comments citalopram 20 mg tablet take 1 tablet by oral route every day 20 MG - Active Procedures Procedure Date Complete Denture Maxillary Wax Try-In Caries High Risk Exempt From Sealant Measure Treatment Plan Complete Denture Bites And Records Treatment Plan Complete Extraction, Erupted Tooth Or Exposed Yudith t (Elevati Resin-Based Composite Three Surfaces, Posterior Caries High Risk Exempt From Sealant Measure Denture Impression Secondary EDR Approval Note Denture Impression Primary EDR Approval Note Caries High Risk Exempt From Sealant Measure Extraction, Erupted Tooth Or Exposed Yudith t (Elevati Extraction, Erupted Tooth Or Exposed Yudith t (Elevati Extraction, Erupted Tooth Or Exposed Yudith t (Elevati Extraction, Erupted Tooth Or Exposed Yudith t (Elevati Extraction, Erupted Tooth Or Exposed Yudith t (Elevati Extraction, Erupted Tooth Or Exposed Yudith t (Elevati Extraction, Erupted Tooth Or Exposed Yudith t (Elevati Extraction, Erupted Tooth Or Exposed Yudith t (Elevati Surgical Removal Of Erupted Tooth Requir ing Elevat EDR Approval Note Bitewings Four Films Panoramic Film Intraoral Periapical First Film Intraoral Periapical Each Additional Film Intraoral Periapical Each Additional Film Intraoral Periapical Each Additional Film Comprehensive Oral Evaluatio n New Or Established EDR Approval Note Advance Directives Directive Yes / No Effective Date File Name No Information Encounters Encounter Description Practice Location Reason(s) For Visit Diagnoses Date Provider Providers Copied on Encounter [facility], [id number] [place], [place], [id number], [place] tel:[phone] [facility] No Information 2 No Information [facility], [id number], [id number], [place] tel:[phone] [facility] Encounter for dental exam and cleaning w/o abnormal findings 2 No Information [facility], [id number] [place], [id number], [place] tel:[phone] [facility] Encounter for dental exam and cleaning w/o abnormal findings 2 No Information [facility], [id number] [place], [place], [id number], [place] tel:[phone] [facility] Encounter for dental exam and cleaning w/o abnormal findings 1 No Information [facility], [id number] [facility], [employer], [id number], [place] tel:[phone] [facility] Encounter for dental exam and cleaning w/o abnormal findings 1 No Information [facility], [id number] [facility], [employer], [place], [id number], [place] tel:[phone] [facility] Encounter for dental exam and cleaning w/o abnormal findings 1 No Information [facility], [id number] [facility], [employer], [place], [id number], [place] tel:[phone] [facility] Encounter for dental exam and cleaning w/o abnormal findings 1 No Information Family History Family Member Type Diagnosis Age At Onset No Information Payers Payer name Insurance type Covered constitution party ID Authoriza tion(s) No Information Social History Type Description Quantity Date Captured Comments Alcohol Use Details Caffeine Use Details Unknown Tobacco Use Status Smoking Status No Information Sex Male Sexual Orientation Heterosexual Gender Identity Male Chief Complaint And Reason For Visit No Information Reason For Referral Reason For Referral No Information Plan Of Treatment Date Type Action Status Goal Tobacco cessation counseling completed Goal Tobacco cessation counseling completed Goal Tobacco cessation counseling completed History Of Present Illness Encounter Date Complaint History Of Prese nt Illness No Information Functional Status Date Functional Assessmen t No Information Instructions Date Instruction Additional Infor mation Lifestyle education Related to D ental Examination Lifestyle education Related to D ental Examination Lifestyle education Related to D ental Examination Lifestyle education Related to D ental Examination Assessments Type Assessment Date No Information Patient Care Teams Name Effective Dates (start - stop) Status Members No Information
[2025-03-08 10:15] VITALS: BP 127/93; PULSE 75; RESP 16; TEMP 36.8; O2SAT 96; BMI 21.4
--- NOTE | 2025-03-08 10:21 | ECG_ITS ---
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
[2025-03-08 10:23] VITALS: PULSE 84; RESP 16; O2SAT 96
--- NOTE | 2025-03-08 10:31 | XR_ITS ---
WS: [id number] Exam: XR chest 1V portable [id number] Date/Time of Exam: 03/08/2025 10:31 AM Reason For Exam: seizure Comparison 11/04/2022. Lungs are fully expanded and clear. Normal cardiomediastinal silhouette. Bony structures are intact. XR/XR chest 1V portable [id number] IMPRESSION: 1. Negative chest.
--- NOTE | 2025-03-08 10:31 | W.ED.SEIZURE ---
HPI - Seizure General: Chief Complaint: Seizure Stated Complaint: seizure - chest pain Time Seen by Provider: 03/08/25 10:20 Source: patient Mode of arrival: EMS Limitations: no limitations History of Present Illness: HPI Narrative: Patient is a 39-year-old male who presents to ED today via EMS for evaluation of a possible seizure. Patient states around 2 AM this morning during intercourse with his he passed out on top of her . The reportedly told him he had an episode of muscle spasm like movements for about 20 seconds or so and had reportedly complained of chest pain at that time. Patient states he does not remember incident. Patient states for several months now he has been having episodes of altering consciousness and amnesia. He has been seen here in the emergency department many times for this. He was just here yesterday for one of these episodes. He was placed on Zonogran at that time at the recommendation of neurology. He has been told these episodes could possibly represent absence seizures. He has also received a diagnoses of global transient amnesia back in October. Upon arrival and during my initial encounter with patient, he is completely asymptomatic. Reports frequent marijuana use but no other drug or alcohol use. MD complaint: seizure Onset (ago): hour(s) -: minutes(s) Witnessed: Yes - by Other () Trauma: No Seizure History: Yes Place: Home Associated symptoms: Reports no associated symptoms; Deny chest pain, chills, fever(s), malaise or syncope Treatments prior to arrival: none Related Data Home Medications ?Medication ?Instructions ?Recorded ?Confirmed acetaminophen 500 mg tablet 1,000 mg PO Q6H PRN Pain 04/02/22 03/08/25 aripiprazole 5 mg tablet 5 mg PO QPM 03/08/25 03/08/25 aspirin 81 mg tablet,delayed 81 mg PO QPM 03/08/25 03/08/25 release (Adult Low Dose Aspirin) citalopram 40 mg tablet 40 mg PO QPM 03/08/25 03/08/25 rosuvastatin 5 mg tablet (Crestor) 5 mg PO QPM 03/08/25 03/08/25 terbinafine HCl 250 mg tablet See Rx Instructions .Route .COMPLEX 03/08/25 03/08/25 valsartan 160 mg tablet (Diovan) 160 mg PO QPM 06/27/25 06/27/25 Previous Rx's ?Medication ?Instructions ?Recorded zonisamide 100 mg capsule 400 mg (4 x 100 mg) PO DAILY 03/07/25 (Zonegran) seizure like activiy 30 days #120 caps Allergies Allergy/AdvReac Type Severity Reaction Status Date / Time No Known Allergies Allergy Verified 03/07/25 20:18 Review of Systems Const: Denies: fever(s), chills, body aches, fatigue or malaise Eyes: Denies: change in vision or blurry vision Card: Denies: chest pain, palpitations, irregular heart rhythm, lightheadedness, syncope or dyspnea on exertion Resp: Denies: dyspnea, productive cough or pain on inspiration GI: Denies: abdominal pain, nausea, vomiting, heartburn or diarrhea : Denies: difficulty urinating or dysuria Musc: Denies: neck pain, back pain, extremity pain, extremity swelling, joint pain, joint swelling or joint redness Skin/Breast: Denies: rash Neuro: Denies: headache(s), numbness in extremities, weakness in extremities, sensory changes, difficulty walking or dizziness PFSH ED PFSH: Medical History Alcohol use disorder in remission Major depressive disorder, recurrent, mild Cannabis use disorder 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 Nicotine dependence, cigarettes, uncomplicated Psychiatric care Essential hypertension Generalized anxiety disorder History of staph infection Smoker Elevated blood pressure reading Surgical History History of oral surgery Family History Father Hypertension Mother , age 47 Cancer ovarian Denies family history of Clotting disorder Anesthesia complication Bleeding disorder Social History Smoking and tobacco/nicotine status: current every day tobacco/nicotine user cigarettes Packs smoked per day: 0.5 Years cigarettes smoked: 15 Quit status (tobacco/nicotine): has tried quititng Number of times tried to quit tobacco: 3 Second hand smoke exposure: Yes Alcohol intake: former Substance/Drug Use: current Substance/Drug use frequency: daily Other substance/drug use details: Recreational. Adopted: No Caregiver/support person: No Lives independently: Yes Household members: spouse Housing: House Marital status: Number of children: 6 Highest education level completed: High School Graduate service: No Current occupational status: unemployed Pets and animals: Yes Do you think of yourself as: Straight/Heterosexual Current gender identity: Male Physical Exam Const: COMMON NORMALS: no acute distress, average body habitus, patient oriented x3, no limitations, healthy appearing, alert and well nourished GENERAL APPEARANCE: cooperative ORIENTATION/CONSCIOUSNESS: Yes awake, Yes oriented to person, Yes oriented to place and Yes oriented to time HENMT: COMMON NORMALS: normocephalic and atraumatic HEAD & SCALP: normal to inspection, normocephalic and atraumatic FACE & SINUS: normal facial exam and face symmetric Eye: GENERAL EYE: appearance normal, both eyes and all related structures and normal light reflex DIRECT OPHTHALMOSCOPY: Yes normal light reflex Neck/C-Spine: COMMON NORMALS: full ROM, no lymphadenopathy, supple and no meningeal signs Chest: COMMONS NORMALS: normal inspection of the chest Resp: COMMON NORMALS: normal respiratory effort and clear to auscultation bilaterally AUSCULTATION: clear to auscultation bilaterally Cardio: COMMON NORMALS: regular rate and regular rhythm RATE: regular rate RHYTHM: regular rhythm GI: COMMON NORMALS: Normal to inspection, nondistended, normoactive bowel sounds present, Soft to palpation, non-tender, No hepatosplenomegaly present and no masses PALPATION: Yes Soft to palpation and Yes No hepatosplenomegaly present : COMMON NORMALS: Yes no CVA tenderness BLADDER/KIDNEY EXAM: Yes no CVA tenderness Back/Pelvis: COMMON NORMALS: no CVA tenderness and thoracic and lumbar spine normal to inspection Extremity: COMMON NORMALS: normal to inspection GENERAL: Yes normal exam except as noted Neuro: JOMAR COMA SCALE: document GCS findings [place] coma scale eye opening: Spontaneous Jomar coma scale verbal response: Orientated [place] coma scale motor response: Obey commands [place] coma scale total score: 15 COMMON NORMALS: patient oriented x3, moves all extremities, no focal motor deficits and no sensory deficits noted SENSORIUM/ORIENTATION: Yes alert, Yes oriented to person, Yes oriented to place and Yes oriented to time MENINGEAL SIGNS: Yes no meningeal signs SPEECH: speech normal MOTOR EXAM: 5/5 motor strength present throughout Skin: COMMON NORMALS: no rashes or lesions noted GENERAL SKIN EXAM: no rashes or lesions noted Course Vital Signs: Vital signs: Vital Signs Temperature 98.2 F 03/08/25 10:15 Pulse Rate 76 03/08/25 12:28 Respiratory Rate 16 03/08/25 12:28 Blood Pressure 133/97 03/08/25 12:28 Pulse Oximetry 97 03/08/25 12:28 Oxygen Delivery Me thod Room Air 03/08/25 10:15 MDM - Seizure MDM Narrative Medical decision making narrative: Patient has been asymptomatic throughout his emergency department stay. Recommend he stay on the [facility]. He has follow-up with Dr. Reese scheduled for next month. They are also wanting a referral for neurology in [place]. Recommended follow-up with primary care in the meantime. Lab Data 03/08/25 10:28 03/08/25 10:28 Labs: Radiology Impressions Chest X-Ray 03/08/25 10:31 IMPRESSION: 1. Negative chest. Laboratory Results WBC 8.76 10^3/uL (3.29-11.43) 03/08/25 10:28 RBC 4.93 10^6/uL (3.85-5.65) 03/08/25 10:28 Hgb 15.10 g/dL (11.27-16.99) 03/08/25 10:28 Hct 42.9 % (37-53) 03/08/25 10:28 MCV 87.0 fl (82-101) 03/08/25 10:28 MCH 30.6 pg (27-33) 03/08/25 10:28 MCHC 35.2 g/dL (30-55) 03/08/25 10:28 RDW 13.8 % (12.1-15.1) 03/08/25 10:28 Plt Count 174 10^3/cmm (157-399) 03/08/25 10:28 MPV 8.9 fL (7.4-10.4) 03/08/25 10:28 Neut % (Auto) 62.3 % 03/08/25 10:28 Lymph % (Auto) 26.0 % 03/08/25 10:28 [place] % (Auto) 7.4 % 03/08/25 10:28 Eos % (Auto) 3.1 % 03/08/25 10:28 Baso % (Auto) 0.9 % 03/08/25 10:28 Neut # (Auto) 5.45 10^3/uL (1.8-7.7) 03/08/25 10:28 Lymph # (Auto) 2.3 10^3/uL (0.8-4.8) 03/08/25 10:28 [place] # (Auto) 0.7 10^3/uL (0.2-0.9) 03/08/25 10:28 Eos # (Auto) 0.3 10^3/uL (0.0-0.8) 03/08/25 10:28 Baso # (Auto) 0.1 10^3/uL (0.0-0.1) 03/08/25 10:28 Nucleated RBC % (auto) 0 % 03/08/25 10:28 Nucleated RBCs # 0.0 /100WBC 03/08/25 10:28 Sodium 138 mmol/L (136-145) 03/08/25 10:28 Potassium 3.5 mmol/L (3.5-5.1) 03/08/25 10:28 Chloride 105 mmol/L (98-107) 03/08/25 10:28 Carbon Dioxide 20 mmol/L (22-29) L 03/08/25 10:28 Anion Gap 16.5 (5-19) 03/08/25 10:28 BUN 10 mg/dL (6-20) 03/08/25 10:28 Creatinine 0.8 mg/dL (0.7-1.2) 03/08/25 10:28 GFR Calculation 107.6 mL/min (90-130) 03/08/25 10:28 Glucose 99 mg/dL (65-115) 03/08/25 10:28 Calculated Osmolality 285 mOsm/kg (285-295) 03/08/25 10:28 Calcium 9.1 mg/dL (8.5-10.5) 03/08/25 10:28 Total Bilirubin 0.5 mg/dL (0.15-1.2) 03/08/25 10:28 AST 19 U/L (0-40) 03/08/25 10:28 ALT 16 U/L (0-41) 03/08/25 10:28 Alkaline Phosphatase 67 U/L (40-130) 03/08/25 10:28 Total Protein 7.5 g/dL (6.6-8.7) 03/08/25 10:28 Albumin 4.2 g/dL (3.5-5.2) 03/08/25 10:28 Globulin 3.3 g/dL (1.3-4.6) 03/08/25 10:28 Urine Color Yellow (Yellow) 03/08/25 12:21 Urine Appearance Cloudy (CLEAR) A 03/08/25 12:21 Urine pH 8.0 (5-7) A 03/08/25 12:21 Ur Specific [place] 1.010 (1.005-1.030) 03/08/25 12:21 Urine Protein Negative (Negative) 03/08/25 12:21 Urine Glucose (UA) Negative (Normal) 03/08/25 12:21 Urine Ketones Negative (Negative) 03/08/25 12:21 Urine Blood Negative (Negative) 03/08/25 12:21 Urine Nitrate Negative (Negative) 03/08/25 12:21 Urine Bilirubin Negative (Negative) 03/08/25 12:21 Urine Urobilinogen 1.0 mg/dL (Negative) 03/08/25 12:21 Ur Leukocyte Esterase Negative (Negative) 03/08/25 12:21 Urine RBC 0-2 /hpf (0-2) 03/08/25 12:21 Urine WBC 0-5 /hpf (0-5) 03/08/25 12:21 Ur Squamous Epith Cells 0-5 /hpf (0-5) 03/08/25 12:21 Amorphous Sediment Not Reportable 03/08/25 12:21 Urine Bacteria None seen /hpf (NONE) 03/08/25 12:21 Hyaline Casts 0-4 /lpf H 03/08/25 12:21 Urine Opiates Screen Negative ng/mL (Negative) 03/08/25 12:21 Ur Barbiturates Screen Negative ng/mL (Negative) 03/08/25 12:21 Ur Phencyclidine Scrn Negative ng/mL (Negative) 03/08/25 12:21 Ur Amphetamines Screen Negative ng/mL (Negative) 03/08/25 12:21 U Benzodiazepines Scrn Negative ng/mL (Negative) 03/08/25 12:21 Urine Cocaine Screen Negative ng/mL (Negative) 03/08/25 12:21 U Marijuana (THC) Screen Positive ng/mL (Negative) H 03/08/25 12:21 All radiology interpretation(s) finalized by discharge Discharge Plan Discharge Patient Disposition: Home Clinical Impression: Transient amnesia Condition: Stable Prescriptions: No Action acetaminophen 500 mg Tablet 1,000 mg PO Q6H PRN (Reason: Pain) zonisamide [Zonegran] 100 mg capsule 400 mg PO DAILY 30 Days Qty: 120 0RF citalopram 40 mg tablet 40 mg PO QPM aspirin [Adult Low Dose Aspirin] 81 mg tablet,delayed release (DR/EC) 81 mg PO QPM terbinafine HCl 250 mg tablet See Rx Instructions .ROUTE .COMPLEX Rx Instructions: Take 1 tablet by mouth daily for one week per month for 3 months. valsartan [Diovan] 160 mg tablet 160 mg PO QPM aripiprazole 5 mg tablet 5 mg PO QPM rosuvastatin [Crestor] 5 mg tablet 5 mg PO QPM Discharge Orders: Discharge ED (Routine); Ordered 03/08/25 Ordered By: Alisha Correa Referrals: Mika Campbell, [facility]EARCH LIBRARIAN-C [Primary Care Provider, [facility]] Patient Instructions: Patient Portal & Ashley Instructions Activity Restrictions/Additional Instructions: As we discussed, please follow-up with his primary care provider. You currently have an appointment scheduled with Dr. Reese on 04/01 at 12:00. You have also requested a neurology follow-up in [place]. Print Language: Togolese Coding Level of Care Code ED Supply Chain Consultant for Conor Castillo
[2025-03-08 10:39] LABS: Basophils # 0.1 10^3/uL (0.0-0.1); Basophils % 0.9 %; Eosinophils # 0.3 10^3/uL (0.0-0.8); Eosinophils % 3.1 %; Hematocrit 42.9 % (37-53); Lymphocytes # 2.3 10^3/uL (0.8-4.8); Mean Corpuscular HGB Conc 35.2 g/dL (30-55); Mean Corpuscular Hemoglobin 30.6 pg (27-33); Mean Platelet Volume 8.9 fL (7.4-10.4); Monocytes # 0.7 10^3/uL (0.2-0.9); Monocytes % 7.4 %; Neutrophils # 5.45 10^3/uL (1.8-7.7); Neutrophils % 62.3 %; Nucleated Red Blood Cells % 0 %; Platelet Count 174 10^3/cmm (157-399); Red Blood Count 4.93 10^6/uL (3.85-5.65); Red Cell Distribution Width 13.8 % (12.1-15.1); White Blood Count 8.76 10^3/uL (3.29-11.43)
[2025-03-08 10:54] LABS: Alanine Aminotransferase 16 U/L (0-41); Albumin Level 4.2 g/dL (3.5-5.2); Alkaline Phosphatase 67 U/L (40-130); Anion Gap 16.5 (5-19); Aspartate Amino Transferase 19 U/L (0-40); Blood Urea Nitrogen 10 mg/dL (6-20); Calcium 9.1 mg/dL (8.5-10.5); Carbon Dioxide 20 mmol/L (22-29); Chloride 105 mmol/L (98-107); Globulin 3.3 g/dL (1.3-4.6); Glomerular Filtration Rate 107.6 mL/min (90-130); Glucose 99 mg/dL (65-115); Osmolality Calculated 285 mOsm/kg (285-295); Potassium 3.5 mmol/L (3.5-5.1); Sodium 138 mmol/L (136-145); Total Bilirubin 0.5 mg/dL (0.15-1.2); Total Protein 7.5 g/dL (6.6-8.7)
[2025-03-08 11:11] VITALS: BP 142/91; PULSE 77; RESP 16; O2SAT 96
--- NOTE | 2025-03-08 11:16 | PC.PHAR ---
Pt states he takes all his medications in the evening and possibly took them last night but is really unsure.
[2025-03-08 11:31] VITALS: BP 137/88; PULSE 95; RESP 16; O2SAT 98
[2025-03-08 12:00] VITALS: BP 133/97; PULSE 82; RESP 16; O2SAT 95
[2025-03-08 12:28] VITALS: BP 133/97; PULSE 76; RESP 16; O2SAT 97
[2025-03-08 12:29] LABS: Bilirubin Urine Negative (Negative); Blood Urine Negative (Negative); Glucose Urine UA Negative (Normal); Ketones Urine Negative (Negative); Leukocyte Esterase Urine Negative (Negative); Nitrate Urine Negative (Negative); Protein Urine Negative (Negative); Urine Appearance Cloudy (CLEAR); Urine Color Yellow (Yellow)
[2025-03-08 12:34] LABS: Add Urine Microscopic? YES; Bacteria Urine None Seen /hpf; Hyaline Casts Urine 0-4 /lpf; RBC Urine 0-2 /hpf (0-2); Squamous Epithelial Cell Urine 0-5 /hpf (0-5); WBC Urine 0-5 /hpf (0-5)
[2025-03-08 12:36] LABS: Amphetamines Screen Urine Negative (Negative); Barbiturates Screen Urine Negative (Negative); Benzodiazepines Screen Urine Negative (Negative); Cocaine Screen Urine Negative (Negative); Opiate Screen Urine Negative (Negative); PCP Screen Urine Negative (Negative); THC Screen Urine Positive (Negative)
--- NOTE | 2025-03-11 08:46 | DCPLANNER ---
faxed referral packet to [facility]
== END 2025-03-08 12:33 | disposition home or self-care (01) ==
PROVIDERS: Emergency Provider Physician Assistant; PCP Nurse Practitioner
DX: G45.4 Transient global amnesia (principal); Z79.82 Long term (current) use of aspirin; F17.210 Nicotine dependence, cigarettes, uncomplicated; I10 Essential (primary) hypertension
CPT/HCPCS: 36415; 71045; 80053; 80306; 81001; 85025; 93005; 99285

== ENCOUNTER 2025-04-25 22:23 | Emergency (ER) | payer MEDICAID, SELFPAY ==
--- OUTSIDE RECORDS SUMMARY | 2025-04-25 22:27 | XMS_ITS | Clinical Summary ---
Author Organization [facility] Address [address] [place] [address] Phone Care Team Providers Care Mohel Name Role Phone Unavailable Primary Care Provider Unavailabl e Allergies No known active allergies Medications acetaminophen (TYLENOL) 500 mg tablet Take 500 mg by mouth every 6 hours as needed for Pain. Active ARIPiprazole (ABILIFY) 5 mg tablet Take 5 mg by mouth daily. Active aspirin (EVELYN CHEWABLE) 81 mg Tablet, Chewable Take 81 mg by mouth daily. Active citalopram (CeleXA) 40 mg tablet Take 40 mg by mouth daily. Active rosuvastatin (CRESTOR) 5 mg tablet Take 5 mg by mouth daily. Active terbinafine HCL (LamISIL) 250 mg tablet Take 250 mg by mouth daily. Active valsartan (DIOVAN) 160 mg tablet Take 160 mg by mouth daily. Active Active Problems Problem Noted Date Diagnosed Date Syncope 03/12/2025 Seizure-like activity 03/10/2025 Benign hypertension 03/10/2025 Hyperlipidemia 03/10/2025 Major depression 03/10/2025 Tobacco dependence 03/10/2025 Hypokalemia 03/10/2025 Encounters Date Type Department Care Team Description 04/09/2025 External Device Data [facility] ABSTRACTION Provider, Abstract 04/09/2025 External Device Data [facility]STRACTION Provider, Abstract 04/09/2025 External Device Data [facility]STRACTION Provider, Abstract 04/02/2025 External Device Data [facility]STRACTION Provider, Abstract 04/02/2025 External Device Data [facility] ABSTRACTION Provider, Abstract 03/12/2025 External Device Data [facility] ABSTRACTION Provider, Abstract 03/12/2025 External Device Data [facility] ABSTRACTION Provider, Abstract 03/12/2025 External Device Data [facility] ABSTRACTION Provider, Abstract 03/11/2025 Travel 03/10/2025 8:10 PM CDT - 03/12/2025 1:30 PM CDT Hospital Encounter [facility] [address] [place] [address] Alonzo Schneider MD Ellis, Keith W, MD Bandaru, Kiran Babu, MD Seizure-like activity (CMS/HCC) Discharge Disposition: Home or Self Care 03/10/2025 Travel from Last 3 Months Social History Tobacco Use Types Packs/Day Years Used Date Smoking Tobacco: Every Day Cigarettes 0.5 30.6 Started: 1994 Tobacco Cessation:Ready to Q uit: Not Asked; Counseling Given: Not Answered Sex and Gender Information Value Date Recorded Sex Assigned at Not on file Legal Sex Male 3:31 PM CDT Gender Identity Not on file Sexual Orientation Not on file Last Filed Vital Signs Vital Sign Reading Time Taken Comments Blood Pressure 122/86 03/12/2025 7:13 AM CDT Pulse 79 03/12/2025 7:13 AM CDT Temperature 36.6 C (97.8 F) 03/12/2025 7:13 AM CDT Respiratory Rate 18 03/12/2025 7:13 AM CDT Oxygen Saturation 95% 03/12/2025 7:13 AM CDT Inhaled Oxygen Concentration - - Weight 68.2 kg (150 lb 7.4 oz) 03/10/2025 3:37 P M CDT Height 175.3 cm (5' 9 ) 03/10/2025 3:37 PM CDT Body Mass Index 22.22 03/10/2025 3:37 PM CDT Plan of Treatment Health Maintenance Due Date Last Done Comments HPV VACCINES (1 - Male 3-dos e series) 2000 DTAP/TDAP/TD VACCINES (6 - Tdap) 05/02/2002 05/01/2002, 12/13/1990, 12/22/1988, Additional history exists HEPATITIS B VACCINES (1 of 3 - 19+ 3-dose series) 2004 INFLUENZA VACCINE (#1) 2025 Procedures Procedure Name Priority Date/Time Associated Diagnosis Comments EEG VIDEO MONITORING Stat 03/12/2025 4:51 PM CDT BASIC METABOLIC PANEL Routine 03/11/2025 12:54 AM CDT TROPONIN 6 HR, 5TH GEN Timed Study 03/11/2025 12:54 AM CDT MRI BRAIN W WO CONTRAST Stat 03/10/2025 11:11 PM CDT TROPONIN 2 HR, 5TH GEN Timed Study 03/10/2025 6:15 PM CDT EXTRA TUBE (URINE BARRETO) Stat 03/10/2025 4:47 PM CDT DRUG SCREEN, URINE Stat 03/10/2025 4: 47 PM CDT URINALYSIS W/REFLEX MICROSCOPIC Stat 03/10/2025 4:47 PM CDT EKG 12-LEAD Stat 03/10/2025 4:13 PM CDT ETHANOL LEVEL Stat 03/10/2025 3:55 PM CDT TROPONIN BASELINE, 5TH GEN Stat 03/10/2025 3:55 PM CDT TSH Stat 03/10/2025 3:55 PM CDT COMPREHENSIVE METABOLIC PANEL Stat 03/10/2025 3:55 PM CDT CBC WITH DIFFERENTIAL Stat 03/10/2025 3:55 PM CDT from Last 3 Months Results * EEG VIDEO MONITORING (03/12/2025 4:51 PM CDT) Narrative Laura Frazier MD - 03/12/2025 4:51 PM CDT Laura Frazier MD 03/12/2025 4:53 PM [facility] EEG REPORT Luna Meza [id number] DATE(s) OF TEST: 03/11/2025- 03/12/25 DATE OF REPORT: 03/12/25 Start time: 10:04 am, 03/11 Start time: 11:51 am, 03/12 EEG recording was held from ~5:30 PM till 5:59 pm, 03/11. HISTORY: 39-year-old male is being evaluated for seizures MEDICATIONS THAT COULD AFFECT THE EEG: No antiseizure medications TECHNICAL SUMMARY: This is a digital video EEG recorded with 32 input channels on a [employer] system, reviewed with bipolar and referential montages using the International 10--20 System. DESCRIPTION OF RECORD: During the maximally alert state a 9-9.5 Hz posterior dominant rhythm was seen that was symmetric, reactive to eye opening and well regulated. More anteriorly, low voltage frontocentral beta predominated. Background was symmetric, continuous, reactive and was represented by alpha activity. Sleep was achieved and characterized by symmetric vertex sharp transients and sleep spindles. HV: Hyperventilation was not performed. PHOTIC STIMULATION: Photic stimulation was not done. VIDEO EVENTS: None Noted ELECTROCARDIOGRAM EVENTS: Regular rhythm IMPRESSION: Normal Awake and asleep Video-EEG CLINICAL CORRELATION: This EEG record captures normal wakefulness and sleep. No epileptiform discharges or ictal patterns were recorded. Clinical correlation is recommended. For any questions, kindly page. Laura Frazier MD Epilepsy/ Clinical Neurophysiology/ Neurology [facility] Alonzo Schneider MD NEUROLOGY ORDERABLES Edited Result - Final * TROPONIN 6 HR, 5TH GEN (03/11/2025 12:54 AM CDT) TROPONIN T, 6 HR 5TH GEN <6 <=15 ng/L 03/11/2025 1:44 AM CDT [facility] Blood Venipuncture / Unknown 03/11/2025 12:54 AM CDT 03/11/2025 12:58 AM CDT Narrative [facility] - 03/11/2025 1:44 AM CDT Troponin Undetectable Unable to calculate delta. Delay in collection of timed specimen beyond recommended collection interval. Results must be interpreted in clinical context. us Kate Gutierrez PA-C CHEMISTRY ORDERABLES Final Result [facility] CLIA # [id number] [facility] [address] [place] [address] * (ABNORMAL) BASIC METABOLIC PANEL (03/11/2025 12:54 AM CDT) SODIUM 142 136 - 145 mmol/L 03/11/2025 1:45 AM T [facility] POTASSIUM 3.5 3.5 - 5.1 mmol/L 03/11/2025 1:45 AM T [facility] CHLORIDE 110(H) 98 - 107 mmol/L 03/11/2025 1:45 AM T [facility] CO2 20(L) 22 - 29 mmol/L 03/11/2025 1:45 AM T [facility] CALCIUM 9.2 8.6 - 10.0 mg/dL 03/11/2025 1:45 AM T [facility] BUN 10 6 - 20 mg/dL 03/11/2025 1:45 AM T [facility] CREATININE 0.87 0.67 - 1.17 mg/dL 03/11/2025 1:45 AM [facility] GLUCOSE 108(H) 74 - 99 mg/dL 03/11/2025 1:45 AM T [facility] GFR >60 >=60 mL/min/1.7 3 sq meter 03/11/2025 1:45 AM [facility] Comment:eGFR calculated with 2020 CKD-EPI equation. Vegetarian diet, extremely high or low muscle mass, and may affect results. Cystatin C with Glomerular Filtration Rate is a suitable alternative for these patients. ANION GAP 12 9 - 20 mmol/L 03/11/2025 1:45 AM [facility] Blood Venipuncture / Unknown 03/11/2025 12:54 AM CDT 03/11/2025 12:58 AM CDT us Samuel Avina MD CHEMISTRY ORDERABLES Final Resu lt [id number] [address] [address] [address] [facility] [place] [address] * MRI BRAIN W WO CONTRAST (03/10/2025 11:11 PM CDT) Anatomical Region Laterality Modality Head Magnetic Resonan ce 03/10/2025 10:1 6 PM CDT Impressions 03/11/2025 6:14 AM CDT IMPRESSION: Please see below. Exam: MRI BRAIN W WO CONTRAST Date/Time of Exam: 03/10/2025 11:11 PM Reason For Exam: Seizure, new-onset, no history of trauma. Diagnosis: Syncope, unspecified syncope type; Seizure-like activity (CMS/HCC). Technique: MRI of the brain was performed prior to and following the administration of intravenous contrast. Contrast: 10 mL of MultiHance. Comparison: None Findings: Normal midline structures, ventricles and relationships at the foramen magnum. No acute infarcts. No significant abnormal intra or extra-axial signal or susceptibility changes. No scalp or calvarial lesions. No fluid in the middle ear cavities or mastoid air cells. Small bilateral maxillary sinus mucus retention cysts and minimal ethmoid and sphenoid sinus mucosal thickening. The orbits are unremarkable. IMPRESSION: 1. No significant abnormality. Narrative Procedure Note Dallin Aburto MD - 03/11/2025 IMPRESSION: Please see below. Exam: MRI BRAIN W WO CONTRAST Date/Time of Exam: 03/10/2025 11:11 PM Reason For Exam: Seizure, new-onset, no history of trauma. Diagnosis: Syncope, unspecified syncope type; Seizure-like activity (CMS/HCC). Technique: MRI of the brain was performed prior to and following the administration of intravenous contrast. Contrast: 10 mL of MultiHance. Comparison: None Findings: Normal midline structures, ventricles and relationships at the foramen magnum. No acute infarcts. No significant abnormal intra or extra-axial signal or susceptibility changes. No scalp or calvarial lesions. No fluid in the middle ear cavities or mastoid air cells. Small bilateral maxillary sinus mucus retention cysts and minimal ethmoid and sphenoid sinus mucosal thickening. The orbits are unremarkable. IMPRESSION: 1. No significant abnormality. Alonzo Schneider MD MR ORDERABLES Final Result * TROPONIN 2 HR, 5TH GEN (03/10/2025 6:15 PM CDT) Pathologist [facility] TROPONIN T, 2 HR 5TH GEN <6 <=15 ng/L 03/10/2025 6:58 PM CDT [facility] Blood Venipuncture / Unknown 03/10/2025 6:15 PM CDT 03/10/2025 6:27 PM CDT Narrative [facility] - 03/10/2025 6:58 PM CDT Troponin Undetectable Unable to calculate delta. Kate Gutierrez PA-C CHEMISTRY ORDERABLES Final Result Performing Organization Address [facility] Co de Phone Number [facility] CLIA # [id number] [address] [address] * EXTRA TUBE (URINE BARRETO) (03/10/2025 4:47 PM CDT) Urine URINE SPECIMEN OBTAINED BY CLEAN CATCH PROCEDURE / Unknown Collection / Unknown 03/10/2025 4:47 PM CDT 03/10/2025 4:51 PM CDT Kate Gutierrez PA-C URINE ORDERABLES Anna l Result Performing Organization Address [facility] Co de Phone Number [facility] CLIA # [id number] [address] [address] [place] [address] * (ABNORMAL) DRUG SCREEN, URINE (03/10/2025 4:47 PM CDT) [facility] AMPHETAMINE QUAL, URINE Negative Negative 03/10/2025 5:33 PM CDT [facility] BARBITURATE QUAL, URINE Negative Negative 03/10/2025 5:33 PM CDT [facility] BENZODIAZEPINE QUAL, URINE Negative Negative 03/10/2025 5:33 PM CDT [facility] COCAINE QUAL URINE Negative Negative 03/10/2025 5:33 PM CDT [facility] OPIATE QUAL, URINE Negative Negative 03/10/2025 5:33 PM T [facility] CANNABINOIDS QUAL, URINE Presumptive Positive(A) Negative 03/10/2025 5:33 PM CDT [facility] OXYCODONE QUAL, URINE Negative Negative 03/10/2025 5:33 PM CDT [facility] METHADONE QUAL, URINE Negative Negative 03/10/2025 5:33 PM CDT [facility] FENTANYL QUAL, URINE Negative Negative 03/10/2025 5:33 PM CDT [facility] CREATININE, URINE 31.1(L) 40.0 - 278.0 mg/dL 03/10/2025 5:33 PM T [facility] Comment:Reference Range vari es with fluid intake and diet. Urine URINE SPECIMEN OBTAINED BY CLEAN CATCH PROCEDURE / Unknown Collection / Unknown 03/10/2025 4:47 PM CDT 03/10/2025 4:51 PM CDT Narrative [facility] - 03/10/2025 5:33 PM CDT This test is a qualitative screen. The presumptive positive results should not be used for legal purposes. If confirmation of results is desired, the lab must be contacted without delay. Drug Ref. Range Screening Threshold Amphetamines Negative 500 ng/mL Barbiturates Negative 200 ng/mL Benzodiazepines Negative 100 ng/mL Cannabinoids Negative 50 ng/mL Cocaine Metabolite Negative 300 ng/mL Opiate Negative 300 ng/mL Oxycodone Negative 100 ng/mL Methadone Negative 300 ng/mL Fentanyl Negative 5 ng/mL us Kate Gutierrez PA-C URINE ORDERABLES Anna deleon Result [facility] CLIA # [id number] [address] [address] [place], [place] [address] * (ABNORMAL) URINALYSIS WITH REFLEX MICROSCOPIC (03/10/2025 4:47 PM CDT) COLOR UA Colorless(A ) Pale to Dark Yellow 03/10/2025 5:29 PM CDT [facility] CLARITY UA Clear Clear 03/10/2025 5:29 PM CDT [facility] SPECIFIC GRAVITY UA 1.006 1.003 - 1.035 03/10/2025 5:29 PM CDT [facility] PH UA 6.5 5.0 - 8.0 03/10/2025 5:29 PM CDT [facility] LEUKOCYTE ESTERASE UA Negative Negative 03/10/2025 5:29 PM CDT [facility] NITRITE UA Negative Negative 03/10/2025 5:29 PM CDT [facility] PROTEIN UA Negative Negative 03/10/2025 5:29 PM CDT [facility] GLUCOSE UA Negative Negative 03/10/2025 5:29 PM CDT [facility] KETONES UA Negative Negative 03/10/2025 5:29 PM CDT [facility] UROBILINOGEN UA <2.0 <2.0 mg/dL 5:29 PM CDT [facility] BILIRUBIN UA Negative Negative 03/10/2025 5:29 PM CDT [facility] BLOOD UA Trace(A) Negative 03/10/2025 5:29 PM CDT [facility] Urine URINE SPECIMEN OBTAINED BY CLEAN CATCH PROCEDURE / Unknown Collection / Unknown 03/10/2025 4:47 PM CDT 03/10/2025 4:51 PM CDT us Kate Gutierrez PA-C URINE ORDERABLES Anna l Result [facility] CLIA # [id number] [address] [address] [place] [address] * EKG 12-LEAD (03/10/2025 4:13 PM CDT) 03/10/2025 4:13 PM CDT Narrative INTERFACE SYSTEM - 03/12/2025 7:[address] PM [address] [address] Test Date: 2025-03-10 Pat Name: LUNA MEZA Department: 11 Room: Gender: M Supervisor Heat Treating: [id number] : 1985 Requested By: Order Number: [id number] Reading : Luke Sargent Measurements Intervals [place] Rate: 79 P: 76 VA: 140 QRS: 81 QRSD: 92 T: 66 QT: 396 QTc: 454 Interpretive Statements Normal sinus rhythm Possible Left atrial enlargement Minimal voltage criteria for LVH, may be normal variant ( Wilfrid product ) Borderline ECG Electronically Signed On 03-12-2025 19:05:06 CDT by Luke Sargent Procedure Note Luke Sargent MD - 03/12/[address] [address] Test Date: 2025-03-10 Pat Name: LUNA MEZA Department: 11 Room: Gender: M Supervisor Heat Treating: [id number] : 1985 Requested By: Order Number: [id number] Reading : Luke Sargent Measurements Intervals [place] Rate: 79 P: 76 VA: 140 QRS: 81 QRSD: 92 T: 66 QT: 396 QTc: 454 Interpretive Statements Normal sinus rhythm Possible Left atrial enlargement Minimal voltage criteria for LVH, may be normal variant ( [place] product) Borderline ECG Electronically Signed On 03-12-2025 19:05:06 CDT by Luke Sargent us Kate Gutierrez PA-C ECG ORDERABLES Final Result INTERFACE SYSTEM Refer to clinic/hospital department * TROPONIN BASELINE, 5TH GEN (03/10/2025 3:55 PM CDT) TROPONIN T, BASELINE 5TH GEN <6 <=15 ng/L 03/10/2025 4:30 PM [facility] Blood Venipuncture / Unknown 03/10/2025 3:55 PM CDT 03/10/2025 3:59 PM CDT Narrative [facility] - 03/10/2025 4:30 PM CDT Troponin Undetectable us Kate Gutierrez PA-C CHEMISTRY ORDERABLES Final Result [facility] CLIA # [id number] [address] [address] [place] [address] * (ABNORMAL) CBC WITH DIFFERENTIAL (03/10/2025 3:55 PM CDT) WBC 8.6 4.5 - 11.0 K/uL 03/10/2025 4:03 PM [facility] RBC 5.22 4.60 - 6.20 M/uL 03/10/2025 4:03 PM CDT [facility] HEMOGLOBIN 16.1 14.0 - 18.0 g/dL 03/10/2025 4:03 PM [facility] HEMATOCRIT 45.3 41.0 - 53.0 % 03/10/2025 4:03 PM [facility] MCV 86.8 84.0 - 103.0 fL 03/10/2025 4:03 PM [facility] MCH 30.8 27.0 - 34.0 pg 03/10/2025 4:03 PM CDT [facility] MCHC 35.5(H) 30.0 - 35.0 g/dL 03/10/2025 4:03 PM [facility] PLATELETS 190 140 - 440 K/uL 03/10/2025 4:03 PM [facility] MPV 8.6(L) 8.9 - 12.8 fL 03/10/2025 4:03 PM [facility] RDW 14.1 11.0 - 14.5 % 03/10/2025 4:03 PM CDT [facility] RDW-STDEV 45.0 37.0 - 54.0 fL 03/10/2025 4:03 PM CDT [facility] NEUTROPHILS 52 42 - 75 % 03/10/2025 4:03 PM CDT [facility] LYMPHOCYTES 37 24 - 44 % 03/10/2025 4:03 PM CDT [facility] MONOCYTES 6 2 - 10 % 03/10/2025 4:03 PM CDT [facility] EOSINOPHILS 4 0 - 7 % 03/10/2025 4:03 PM CDT [facility] BASOPHILS 1 0 - 1 % 03/10/2025 4:03 PM CDT [facility] IMMATURE GRANULOCYTES 0 0 - 2 % 03/10/2025 4:03 PM CDT [facility] NEUTROPHIL ABSOLUTE 4.50 2.00 - 8.00 K/uL 03/10/2025 4:03 PM CDT [facility] LYMPHOCYTE ABSOLUTE 3.15 1.20 - 4.00 K/uL 03/10/2025 4:03 PM [facility] MONOCYTE ABSOLUTE 0.54 0.10 - 0.60 K/uL 03/10/2025 4:03 PM CDT [facility] EOSINOPHIL ABSOLUTE 0.31 0.00 - 0.70 K/uL 03/10/2025 4:03 PM [facility] BASOPHILS ABSOLUTE 0.08 0.00 - 0.20 K/uL 03/10/2025 4:03 PM [facility] IMMATURE GRANULOCYTES ABSOLUTE 0.02 0.00 - 0.10 K/uL 03/10/2025 4:03 PM [facility] SMEAR REVIEWED: NA - Not Applicable 03/10/2025 4:03 PM [facility] Blood Venipuncture / Unknown 03/10/2025 3:55 PM CDT 03/10/2025 3:58 PM CDT us Kate Gutierrez PA-C HEMATOLOGY ORDERABLES Final Result [facility] CLIA # [id number] [address] [address] [place] [address] * TSH (03/10/2025 3:55 PM CDT) [facility] TSH 0.89 0.27 - 4.20 uIU/mL 03/10/2025 4:42 PM CDT [facility] Blood Venipuncture / Unknown 03/10/2025 3:55 PM CDT 03/10/2025 3:59 PM CDT us Kate Gutierrez PA-C CHEMISTRY ORDERABLES Final Result Performing Organization Address [facility] de Phone Number [facility] CLIA # [id number] [address] [address] [place] [address] * ETHANOL LEVEL (03/10/2025 3:55 PM CDT) [facility] ETHANOL <10.10 <10.10 mg/dL 03/10/2025 4:40 PM CDT [facility] ETHANOL % <0.01 <=0.01 %w/v 03/10/2025 4:40 PM CDT [facility] Blood Venipuncture / Unknown 03/10/2025 3:55 PM CDT 03/10/2025 3:59 PM CDT us Kate Gutierrez PA-C CHEMISTRY ORDERABLES Final Result Performing Organization Address [facility] Co de Phone Number [facility] CLIA # [id number] [address] [address] [place] [address] * (ABNORMAL) COMPREHENSIVE METABOLIC PANEL (03/10/2025 3:55 PM CDT) [facility] SODIUM 141 136 - 145 mmol/L 03/10/2025 4:42 PM [facility] POTASSIUM 3.3(L) 3.5 - 5.1 mmol/L 03/10/2025 4:42 PM [facility] CHLORIDE 108(H) 98 - 107 mmol/L 03/10/2025 4:42 PM [facility] CO2 20(L) 22 - 29 mmol/L 03/10/2025 4:42 PM [facility] CALCIUM 9.1 8.6 - 10.0 mg/dL 03/10/2025 4:42 PM [facility] BUN 11 6 - 20 mg/dL 03/10/2025 4:42 PM [facility] CREATININE 0.86 0.67 - 1.17 mg/dL 03/10/2025 4:42 PM [facility] GLUCOSE 118(H) 74 - 99 mg/dL 03/10/2025 4:42 PM [facility] TOTAL PROTEIN 7.6 6.4 - 8.3 g/dL 03/10/2025 4:42 PM [facility] ALBUMIN 4.5 3.5 - 5.2 g/dL 03/10/2025 4:42 PM [facility] BILIRUBIN TOTAL 0.2 0.0 - 1.0 mg/dL 03/10/2025 4:42 PM [facility] ALKALINE PHOSPHATASE 66 40 - 129 U/L 03/10/2025 4:42 PM [facility] AST 15 10 - 50 U/L 03/10/2025 4:42 PM [facility] ALT 13 <=50 U/L 03/10/2025 4:42 PM [facility] GFR >60 >=60 mL/min/1.7 3 sq meter 03/10/2025 4:42 PM [facility] Comment:eGFR calculated with 2020 CKD-EPI equation. Vegetarian diet, extremely high or low muscle mass, and may affect results. Cystatin C with Glomerular Filtration Rate is a suitable alternative for these patients. ANION GAP 13 9 - 20 mmol/L 03/10/2025 4:42 PM CDT [facility] Blood Venipuncture / Unknown 03/10/2025 3:55 PM CDT 03/10/2025 3:59 PM CDT us Kate Gutierrez PA-C CHEMISTRY ORDERABLES Final Result [facility] CLIA # [id number] [address] [facility] [place] [address] from Last 3 Months Insurance [facility] [employer] Advance Directives For more information, please contact: [phone] * Full Code (Latest Code Status on File) Date Activated Date Inactivated Comments 03/10/2025 10:38 PM 03/12/2025 3:35 PM
[2025-04-25 23:03] VITALS: BP 112/75; PULSE 74; RESP 17; TEMP 36.6; O2SAT 97; BMI 22.0
--- NOTE | 2025-04-26 00:58 | W.ED.WOUNDLC ---
HPI - Wound/Laceration General: Chief Complaint: Wound/Laceration Stated Complaint: ripped ear lobe Time Seen by Provider: 04/25/25 23:35 Source: patient Mode of arrival: ambulatory Limitations: no limitations History of Present Illness: Patient is a 40-year-old male who presents the emergency department with left ear injury. Patient states that his earring got stuck on a swing set when he was pushing his child, and it ripped the earring out of his lobe, causing it to split. There is active oozing at this time, states tetanus not up-to-date. Pain reported to be mild. Onset (ago): hour(s) Location: face (Left ear) Patient tetanus UTD: No Context: accidental Associated symptoms: Denies chills, fever(s), nausea or vomiting Related Data Home Medications ?Medication ?Instructions ?Recorded ?Confirmed acetaminophen 500 mg tablet 1,000 mg PO Q6H PRN Pain 04/02/22 04/19/25 aspirin 81 mg tablet,delayed 81 mg PO QPM 03/08/25 04/19/25 release (Adult Low Dose Aspirin) Previous Rx's ?Medication ?Instructions ?Recorded aripiprazole 5 mg tablet 5 mg PO QPM #30 tabs 03/28/25 citalopram 40 mg tablet 40 mg PO QPM #30 tabs 03/28/25 rosuvastatin 5 mg tablet (Crestor) 5 mg PO QPM #30 tabs 04/09/25 valsartan 160 mg tablet (Diovan) 160 mg PO QPM #30 tabs 04/09/25 zonisamide 100 mg capsule 400 mg (4 x 100 mg) PO DAILY 04/09/25 (Zonegran) seizure like activiy 30 days #120 caps mupirocin 2 % topical ointment 1 applic topical DAILY #15 grams 04/26/25 (Centany) Allergies Allergy/AdvReac Type Severity Reaction Status Date / Time No Known Allergies Allergy Verified 04/19/25 12:51 Review of Systems General: Reports: 10 or more systems reviewed and unremarkable except in HPI and below Const: Denies: fever(s) or chills Card: Denies: chest pain Resp: Denies: dyspnea GI: Denies: abdominal pain, nausea, vomiting or diarrhea Musc: Denies: extremity pain or joint pain Skin/Breast: Reports: new lesions (Left ear laceration); Denies: rash, skin pain or skin tenderness Neuro: Denies: headache(s) PFSH ED PFSH: Medical History Alcohol use disorder in remission Major depressive disorder, recurrent, mild Cannabis use disorder 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 Nicotine dependence, cigarettes, uncomplicated Psychiatric care Essential hypertension Generalized anxiety disorder History of staph infection Smoker Elevated blood pressure reading Surgical History History of oral surgery Family History Father Hypertension Mother , age 47 Cancer ovarian Denies family history of Clotting disorder Anesthesia complication Bleeding disorder Social History Smoking and tobacco/nicotine status: current every day tobacco/nicotine user cigarettes Packs smoked per day: 0.5 Years cigarettes smoked: 15 Quit status (tobacco/nicotine): has tried quititng Number of times tried to quit tobacco: 3 Second hand smoke exposure: Yes Alcohol intake: former Substance/Drug Use: current Substance/Drug use frequency: daily Other substance/drug use details: Recreational. Adopted: No Caregiver/support person: No Lives independently: Yes Household members: spouse Housing: House Marital status: Number of children: 6 Highest education level completed: High School Graduate service: No Current occupational status: unemployed Pets and animals: Yes Do you think of yourself as: Straight/Heterosexual Current gender identity: Male Physical Exam Const: COMMON NORMALS: no acute distress, average body habitus, patient oriented x3, no limitations, healthy appearing, alert and well nourished HENMT: COMMON NORMALS: normocephalic and atraumatic HEAD & SCALP: normocephalic and atraumatic OTHER: There is traumatic separation of the left earlobe, through and through laceration associated with gauged piercing. No active bleeding. Neck/C-Spine: COMMON NORMALS: full ROM, no lymphadenopathy, supple and no meningeal signs Resp: COMMON NORMALS: normal respiratory effort, No use of accessory muscles and clear to auscultation bilaterally AUSCULTATION: clear to auscultation bilaterally Cardio: COMMON NORMALS: regular rate and regular rhythm RATE: regular rate RHYTHM: regular rhythm Extremity: COMMON NORMALS: full ROM and capillary refill normal Neuro: COMMON NORMALS: patient oriented x3 SENSORIUM/ORIENTATION: Yes alert MENINGEAL SIGNS: Yes no meningeal signs Skin: COMMON NORMALS: no rashes or lesions noted, no wounds and turgor normal GENERAL SKIN EXAM: no rashes or lesions noted and turgor normal Procedures Laceration Laceration 1: Site: face (Left ear) Description: irregular Depth: [id number] Local Anesthetic: lidocaine 2% Amount of anesthesia used (mL): 2 Pre-repair: wound explored, irrigated extensively, extensive debridement and wound margins revised Skin layer closed with: nylon Size (cm): 6-0 Number of sutures: 6 Technique: simple, interrupted Course Vital Signs: Vital signs: Vital Signs Temperature 97.9 F 04/25/25 23:03 Pulse Rate 74 04/25/25 23:03 Respiratory Rate 17 04/25/25 23:03 Blood Pressure 112/75 04/25/25 23:03 Pulse Oximetry 97 04/25/25 23:03 Oxygen Delivery Me thod Room Air 04/25/25 23:03 MDM - Wound/Laceration Medical Decision Making There is a thin piece of the earlobe that was lacerated through and through, reattachment of the lobe utilized with simple interrupted sutures, after cleaning and hemostasis. Overall reapproximation appears sufficient, though he will be referred to plastic surgery for reevaluation and for any potential revision down the road. His tetanus was updated, pain has been controlled here in the emergency department. Strict return precautions given. No radiology studies performed this visit Discharge Plan Discharge Patient Disposition: Home Clinical Impression: Laceration of ear lobe Condition: Stable Prescriptions: New mupirocin [Centany] 2 % ointment 1 applic topical DAILY Qty: 15 0RF No Action zonisamide [Zonegran] 100 mg capsule 400 mg PO DAILY 30 Days Qty: 120 2RF valsartan [Diovan] 160 mg tablet 160 mg PO QPM Qty: 30 2RF rosuvastatin [Crestor] 5 mg tablet 5 mg PO QPM Qty: 30 2RF aripiprazole 5 mg tablet 5 mg PO QPM Qty: 30 2RF citalopram 40 mg tablet 40 mg PO QPM Qty: 30 2RF acetaminophen 500 mg Tablet 1,000 mg PO Q6H PRN (Reason: Pain) aspirin [Adult Low Dose Aspirin] 81 mg tablet,delayed release (DR/EC) 81 mg PO QPM Discharge Orders: Discharge ED (Routine); Ordered 04/26/25 Ordered By: Luke Ward Referrals: Mika Campbell FNP-C [Primary Care Provider, [facility]] Patient Instructions: Patient Portal & Ashley Instructions Activity Restrictions/Additional Instructions: Earlobe Laceration Discharge Wound Care Instructions: - Keep the wound clean and dry for the first 24 hours. After this period, gentle cleansing with potable tap water is recommended; this does not increase infection risk compared to sterile saline. - Apply a thin layer of plain petrolatum ointment (e.g., Vaseline) to the wound twice daily. This is as effective as antibiotic ointment for postprocedure care and helps maintain a moist environment, which promotes healing. - Cover the wound with a non-adherent, occlusive or semiocclusive dressing (e.g., Telfa pad, Tegaderm) to protect the area and maintain moisture. - Avoid trauma or pressure to the repaired earlobe. Do not sleep on the affected side or wear earrings until cleared by a specialist. - If the dressing becomes wet or soiled, replace it with a clean, dry dressing. Activity Restrictions: - Avoid swimming, soaking, or submerging the ear until sutures are removed and the wound is fully healed. - Refrain from strenuous activity that may risk trauma to the ear. Signs and Symptoms Requiring Return to the Emergency Department: - Increasing pain, redness, swelling, or warmth at the wound site. - Pus or foul-smelling drainage from the wound. - Fever or chills. - Separation of the wound edges or bleeding that does not stop with gentle pressure. - Any signs of tissue necrosis (darkening or loss of tissue viability). Suture Removal Timing: - Sutures in the earlobe should be removed in 10?14 days, as delayed removal is associated with improved cosmetic outcomes and reduced risk of dehiscence. - If healing appears delayed or there is concern for infection, reassessment prior to suture removal is recommended. Follow-Up and Referral: - A referral to plastic surgery has been placed for reevaluation of the repair and assessment of cosmetic outcome. The specialist will advise on timing for repiercing, scar management, and any further interventions if needed. Antibiotics: - Routine prophylactic antibiotics are not indicated for simple earlobe lacerations unless there is cartilage involvement, gross contamination, or patient-specific risk factors (e.g., immunosuppression, diabetes). If antibiotics were prescribed, take as directed and complete the full course. Tetanus Prophylaxis: - If tetanus immunization status is not up to date, ensure appropriate vaccination per standard guidelines. Additional Instructions: - Avoid manipulation of the wound and do not attempt to remove sutures at home. - For any concerns or questions, contact the emergency department or the referred plastic surgery service. Print Language: Nepali Coding Level of Care Code ED Manager Clinical Pharmacy for Conor Castillo
[2025-04-26] MEDS: oxyCODONE-APAP 5-325 mg Tablet 2 TAB PO (01:00)
[2025-04-26] MEDS: bacitracin ointment Pkt 1 EACH TOPICAL (01:00)
[2025-04-26] MEDS: tetanus-dipt-pertussis 0.5 mL SDV IM (01:02)
--- NOTE | 2025-04-30 10:17 | DCPLANNER ---
Referral to [facility] Plastic Surgery-
== END 2025-04-26 01:11 | disposition home or self-care (01) ==
PROVIDERS: Emergency Provider Physician Assistant; PCP Nurse Practitioner
DX: S01.312A Laceration without foreign body of left ear, initial encounter (principal); W23.0XXA Caught, crushed, jammed, or pinched between moving objects, initial encounter
CPT/HCPCS: 12052; 90471; 90715; 99283; J9999

== ENCOUNTER 2025-05-08 12:28 | Emergency (ER) | payer MEDICAID, SELFPAY ==
--- OUTSIDE RECORDS SUMMARY | 2022-01-22 09:00 | XMS_ITS | Continuity of Care Document ---
Author Organization [facility] Address [address] [id number][place] [address] Phone Care Team Providers Care Line Crewman Name Role Phone Unavailable Unavailable Unavailable Allergies, [...] t (Elevati Extraction, Erupted Tooth Or Exposed Yudtih t (Elevati Extraction, Erupted Tooth Or Exposed [...] Diagnoses Date Provider Providers Copied on Encounter [facility], [id number]-Vo [place], [place], [id number], [place] tel:[phone] [facility] No Information 2 No Information [facility], [address] [id number] 754255FU[place], [address], [place] tel:[phone] [facility] Encounter for dental exam and cleaning w/o abnormal findings 2 No Information [facility], [id number]-Bm [place], [place], [id number], [place] tel:[phone] [facility] Encounter for dental exam and cleaning w/o abnormal findings 2 No Information [facility], [id number]-Ie [place], [id number], [place] tel:[phone] [facility] Encounter for dental exam and cleaning w/o abnormal findings 1 No Information [facility], [id number] [id number]-Pr [facility], [place], [place], [address], [place] tel:[phone] [facility] Encounter for dental exam and cleaning w/o abnormal findings 1 No Information [facility], [id number] 861974BA-Vt [facility], [place], [place], [id number], [place] tel:[phone] [facility] Encounter for dental exam and cleaning w/o abnormal findings 1 No Information [facility], [id number]-Eb [facility], [place], [place], [address], [place] tel:[phone] [facility] Encounter for dental exam and cleaning [...]
--- OUTSIDE RECORDS SUMMARY | 2025-05-08 12:39 | XMS_ITS | Encounter Summary ---
Author Organization [facility] Address [address] [place] [address] Care Team Providers Care Representative Name Role Phone Unavailable Primary Care Provider Unavailabl e Encounter Details Date Type Department Care Team (Late st Contact Info) Description 05/01/2025 External Device Data [facility] ABSTRACTION Provider, Abstract NO ADDRESS ON FILE Social History Tobacco Use Types Packs/Day Years Used Date Smoking Tobacco: Every Day Cigarettes 0.5 30.7 Started: 1994 Feeling Safe Answer Date Recorded Are you in a relationship wi th someone who hurts you emotionally and/or physically? No 03/11/2025 Food Insecurity Answer Date Recorded Patient needs follow up regardin 03/11/2025 Transportation Needs Answer Date Record ed Patient needs follow up regardin 03/11/2025 Utility Needs Answer Date Recorded Patient needs follow up regardin 03/11/2025 Sex and Gender Information Value Date Recorded Sex Assigned at Not on file Legal Sex Male 3:31 PM CDT Gender Identity Not on file Sexual Orientation Not on file documented as of this encounter Plan of Treatment Not on file documented as of this encounter Visit Diagnoses Not on filedocumented in this encounter
--- OUTSIDE RECORDS SUMMARY | 2025-05-08 12:39 | XMS_ITS | Encounter Summary ---
Author Organization [facility] Address [address] [place] [address] Care Team Providers Care Dental Surgery Doctor Name Role Phone Unavailable Primary Care Provider Unavailabl e Encounter Details Date Type Department Care Team (Late st Contact Info) Description 05/07/2025 External Device Data [facility] ABSTRACTION Provider, Abstract [...]
--- OUTSIDE RECORDS SUMMARY | 2025-05-08 12:39 | XMS_ITS | Clinical Summary ---
Author Organization [facility] Address [address] [place] [address] Phone Care Team Providers Care Senior Group Manager Name Role Phone Unavailable Primary Care Provider [...] Encounters Date Type Department Care Team Description 05/07/2025 External Device Data [facility] ABSTRACTION Provider, Abstract 05/07/2025 External Device Data [facility] ABSTRACTION Provider, Abstract 05/01/2025 External Device Data [facility] ABSTRACTION Provider, [...] - 03/12/2025 1:30 PM CDT Hospital Encounter [address] [facility] [address] [place] [address] Alonzo Schneider MD Ellis, Keith W, MD Bandaru, Kiran Babu, MD Seizure-like activity (CMS/HCC) Discharge Disposition: Home or Self Care 03/10/2025 Travel from Last 3 Months Social History Tobacco Use Types Packs/Day Years Used Date Smoking Tobacco: Every Day Cigarettes 0.5 30.7 Started: 1994 Tobacco Cessation:Ready to Q uit: Not Asked; Counseling Given: Not Answered Feeling Safe Answer Date Recorded Are you [...] CDT Laura Frazier MD 03/12/2025 4:53 PM [facility] EEG REPORT Luna Meza [id number] DATE(s) OF TEST: 03/11/2025- 03/12/25 DATE OF REPORT: 03/12/25 Start time: 10:04 am, 03/11 Start time: 11:51 am, 03/12 EEG recording was held from ~5:30 PM till 5:59 pm, 03/11. HISTORY: 39-year-old male is being evaluated for seizures MEDICATIONS THAT COULD AFFECT THE EEG: No antiseizure medications TECHNICAL SUMMARY: This is a digital video EEG recorded with 32 input channels on a Aviasales system, reviewed with bipolar and referential montages [...] Laura Frazier MD Epilepsy/ Clinical Neurophysiology/ Neurology [facility] us Alonzo Schneider MD NEUROLOGY ORDERABLES Edited Result - Final * TROPONIN 6 HR, 5TH GEN (03/11/2025 12:54 AM CDT) TROPONIN T, 6 HR 5TH GEN <6 <=15 ng/L 03/11/2025 1:44 AM CDT [facility] Blood Venipuncture / Unknown 03/11/2025 12:54 AM CDT 03/11/2025 12:58 AM CDT Narrative [facility] - 03/11/2025 1:44 AM CDT Troponin Undetectable Unable to calculate delta. Delay in collection of timed specimen beyond recommended collection interval. Results must be interpreted in clinical context. us Kate Gutierrez PA-C CHEMISTRY ORDERABLES Final Result [facility] CLIA # [id number] [address] [address] * (ABNORMAL) BASIC METABOLIC PANEL (03/11/2025 12:54 AM CDT) SODIUM 142 136 - 145 mmol/L 03/11/2025 1:45 AM [facility] POTASSIUM 3.5 3.5 - 5.1 mmol/L 03/11/2025 1:45 AM [facility] CHLORIDE 110(H) 98 - 107 mmol/L 03/11/2025 1:45 AM [facility] CO2 20(L) 22 - 29 mmol/L 03/11/2025 1:45 AM [facility] CALCIUM 9.2 8.6 - 10.0 mg/dL 03/11/2025 1:45 AM [facility] BUN 10 6 - 20 mg/dL 03/11/2025 1:45 AM [facility] CREATININE 0.87 0.67 - 1.17 mg/dL 03/11/2025 1:45 AM [facility] GLUCOSE 108(H) 74 - 99 mg/dL 03/11/2025 1:45 AM [facility] GFR >60 >=60 mL/min/1.7 3 sq meter 03/11/2025 1:45 AM [facility] Comment:eGFR calculated with 2020 CKD-EPI equation. Vegetarian diet, extremely high or low muscle mass, and may affect results. Cystatin C with Glomerular Filtration Rate is a suitable alternative for these patients. ANION GAP 12 9 - 20 mmol/L 03/11/2025 1:45 AM CDT [facility] Blood Venipuncture / Unknown 03/11/2025 12:54 AM CDT 03/11/2025 12:58 AM CDT us Samuel Avina MD CHEMISTRY ORDERABLES Final Resu lt [facility] CLIA # [id number] [address] [place] [address] * MRI BRAIN W WO CONTRAST (03/10/2025 [...] 5TH GEN (03/10/2025 6:15 PM CDT) Pathologist [facility] TROPONIN T, 2 HR 5TH GEN <6 <=15 ng/L 03/10/2025 6:58 PM CDT [facility] [employer] [facility] Blood Venipuncture / Unknown 03/10/2025 6:15 PM CDT 03/10/2025 6:27 PM CDT Narrative [facility] [employer] [facility] - 03/10/2025 6:58 PM CDT Troponin Undetectable Unable to calculate delta. Kate Gutierrez PA-C CHEMISTRY ORDERABLES Final Result Performing Organization Address [facility]/ZIP Co de Phone Number [facility] [employer] [facility] CLIA # [id number] [address] [place] [address] [place] [address] * EXTRA TUBE (URINE BARRETO) (03/10/2025 4:47 PM CDT) Urine URINE SPECIMEN OBTAINED BY CLEAN CATCH PROCEDURE / Unknown Collection / Unknown 03/10/2025 4:47 PM CDT 03/10/2025 4:51 PM CDT Kate Gutierrez PA-C URINE ORDERABLES Anna l Result [facility] [employer] [id number] [address] [address] [place] [address] * (ABNORMAL) DRUG SCREEN, URINE (03/10/2025 4:47 PM CDT) [facility] AMPHETAMINE QUAL, URINE Negative Negative 03/10/2025 5:33 PM CDT [facility] BARBITURATE QUAL, URINE Negative Negative 03/10/2025 5:33 PM CDT [facility] BENZODIAZEPINE QUAL, URINE Negative Negative 03/10/2025 5:33 PM CDT [facility] COCAINE QUAL URINE Negative Negative 03/10/2025 5:33 PM CDT [facility] OPIATE QUAL, URINE Negative Negative 03/10/2025 5:33 PM CDT [facility] CANNABINOIDS QUAL, URINE Presumptive Positive(A) Negative 03/10/2025 5:33 PM CDT [facility] OXYCODONE QUAL, URINE Negative Negative 03/10/2025 5:33 PM CDT [facility] METHADONE QUAL, URINE Negative Negative 03/10/2025 5:33 PM CDT [facility] FENTANYL QUAL, URINE Negative Negative 03/10/2025 5:33 PM CDT [facility] CREATININE, URINE 31.1(L) 40.0 - 278.0 mg/dL 03/10/2025 5:33 PM CDT [facility] Comment:Reference Range vari es with fluid intake and diet. Urine URINE SPECIMEN OBTAINED BY CLEAN CATCH PROCEDURE / Unknown Collection / Unknown 03/10/2025 4:47 PM CDT 03/10/2025 4:51 PM CDT [facility] - 03/10/2025 5:33 PM CDT This test [...] us Kate Gutierrez PA-C URINE ORDERABLES Anna adrienne Result [facility] CLIA # [id number] [address] [place] [address] [place] [address] * (ABNORMAL) URINALYSIS WITH REFLEX MICROSCOPIC (03/10/2025 4:47 PM CDT) COLOR UA Colorless(A ) Pale to Dark Yellow 03/10/2025 5:29 PM CDT [facility] CLARITY UA Clear Clear 03/10/2025 5:29 PM CDT [facility] SPECIFIC GRAVITY UA 1.006 1.003 - 1.035 03/10/2025 5:29 PM CDT [facility] PH UA 6.5 5.0 - 8.0 03/10/2025 5:29 PM CDT [facility] LEUKOCYTE ESTERASE UA Negative Negative 03/10/2025 5:29 PM CDT [facility] NITRITE UA Negative Negative 03/10/2025 5:29 PM CDT [facility] PROTEIN UA Negative Negative 03/10/2025 5:29 PM CDT [facility] GLUCOSE UA Negative Negative 03/10/2025 5:29 PM CDT [facility] KETONES UA Negative Negative 03/10/2025 5:29 PM CDT [facility] UROBILINOGEN UA <2.0 <2.0 mg/dL 5:29 PM CDT [facility] BILIRUBIN UA Negative Negative 03/10/2025 5:29 PM CDT [facility] BLOOD UA Trace(A) Negative 03/10/2025 5:29 PM CDT [facility] Urine URINE SPECIMEN OBTAINED BY CLEAN CATCH PROCEDURE / Unknown Collection / Unknown 03/10/2025 4:47 PM CDT 03/10/2025 4:51 PM CDT us Kate Gutierrez PA-C URINE ORDERABLES Anna adrienne Result [facility] # [id number] [address] [facility] [place], [place] [address] * EKG 12-LEAD (03/10/2025 4:13 PM CDT) 03/10/2025 4:13 PM CDT Narrative INTERFACE SYSTEM - 03/12/2025 7:05 PM [address]T [address] [address] Test Date: 2025-03-10 Pat Name: LUNA MEZA Department: 11 Room: Gender: M 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 Marine: [id number] : 1985 Requested By: Order Number: [id number] Reading : Luke Sargent Measurements Intervals [place] Rate: 79 P: 76 [place]: 140 QRS: 81 QRSD: 92 T: 66 QT: 396 QTc: 454 Interpretive Statements Normal sinus rhythm Possible Left atrial enlargement Minimal voltage criteria for LVH, may be normal variant ( [place] product ) Borderline ECG Electronically Signed On 03-12-2025 19:05:06 CDT by Luke Sargent Procedure Note Luke Sargent MD - 03/12/2025 [facility] [address] [place] [address] Test Date: 2025-03-10 Pat Name: LUNA JONESSON Department: 11 Room: Gender: M Architect Marine: [id number] : 1985 Requested By: Order Number: [id number] Charissa Sargent Measurements Intervals [place] Rate: 79 P: 76 [place]: 140 QRS: 81 QRSD: 92 T: 66 QT: 396 QTc: 454 Interpretive Statements Normal sinus rhythm Possible Left atrial enlargement Minimal voltage criteria for LVH, may be normal variant ( [place]fr[place] product) Borderline ECG Electronically Signed On 03-12-2025 19:05:06 CDT by Luke Sargent Kate Gutierrez PA-C ECG ORDERABLES Final Result INTERFACE SYSTEM Refer to clinic/hospital department * TROPONIN BASELINE, 5TH GEN (03/10/2025 3:55 PM CDT) [facility] TROPONIN T, BASELINE 5TH GEN <6 <=15 ng/L 03/10/2025 4:30 PM CDT [facility] Blood Venipuncture / Unknown 03/10/2025 3:55 PM CDT 03/10/2025 3:59 PM CDT Narrative [facility] - 03/10/2025 4:30 PM CDT Troponin Undetectable Kate Gutierrez PA-C CHEMISTRY ORDERABLES Final Result Performing Organization Address [facility] Co de Phone Number [facility] CLIA # [id number] [facility] [address] [place], [place] [address] * (ABNORMAL) CBC WITH DIFFERENTIAL (03/10/2025 3:55 PM CDT) [facility] WBC 8.6 4.5 - 11.0 K/uL 03/10/2025 4:03 PM CDT [facility] RBC 5.22 4.60 - 6.20 M/uL 03/10/2025 4:03 PM CDT [facility] HEMOGLOBIN 16.1 14.0 - 18.0 g/dL 03/10/2025 4:03 PM CDT [facility] HEMATOCRIT 45.3 41.0 - 53.0 % 03/10/2025 4:03 PM CDT [facility] MCV 86.8 84.0 - 103.0 fL 03/10/2025 4:03 PM CDT [facility] MCH 30.8 27.0 - 34.0 pg 03/10/2025 4:03 PM [facility] MCHC 35.5(H) 30.0 - 35.0 g/dL 03/10/2025 4:03 PM [facility] PLATELETS 190 140 - 440 K/uL 03/10/2025 4:03 PM [facility] MPV 8.6(L) 8.9 - 12.8 fL 03/10/2025 4:03 PM [facility] RDW 14.1 11.0 - 14.5 % 03/10/2025 4:03 PM [facility] RDW-STDEV 45.0 37.0 - 54.0 fL 03/10/2025 4:03 PM [facility] NEUTROPHILS 52 42 - 75 % 03/10/2025 4:03 PM [facility] LYMPHOCYTES 37 24 - 44 % 03/10/2025 4:03 PM [facility] MONOCYTES 6 2 - 10 % 03/10/2025 4:03 PM [facility] EOSINOPHILS 4 0 - 7 % 03/10/2025 4:03 PM [facility] BASOPHILS 1 0 - 1 % 03/10/2025 4:03 PM [facility] IMMATURE GRANULOCYTES 0 0 - 2 % 03/10/2025 4:03 PM [facility] NEUTROPHIL ABSOLUTE 4.50 2.00 - 8.00 K/uL 03/10/2025 4:03 PM [facility] LYMPHOCYTE ABSOLUTE 3.15 1.20 - 4.00 K/uL 03/10/2025 4:03 PM [facility] MONOCYTE ABSOLUTE 0.54 0.10 - 0.60 K/uL 03/10/2025 4:03 PM [facility] EOSINOPHIL ABSOLUTE 0.31 0.00 - 0.70 K/uL 03/10/2025 4:03 PM [facility] BASOPHILS ABSOLUTE 0.08 0.00 - 0.20 K/uL 03/10/2025 4:03 PM [facility] IMMATURE GRANULOCYTES ABSOLUTE 0.02 0.00 - 0.10 K/uL 03/10/2025 4:03 PM CDT [facility] SMEAR REVIEWED: NA - Not Applicable 03/10/2025 4:03 PM CDT [facility] Blood Venipuncture / Unknown 03/10/2025 3:55 PM CDT 03/10/2025 3:58 PM CDT Kate Gutierrez PA-C HEMATOLOGY ORDERABLES Final Result Performing Organization Address [facility] Co de Phone Number [facility] CLIA # [id number] [address] [address] [place] [address] * TSH (03/10/2025 3:55 PM CDT) TSH 0.89 0.27 - 4.20 uIU/mL 03/10/2025 4:42 PM CDT [facility] Blood Venipuncture / Unknown 03/10/2025 3:55 PM CDT 03/10/2025 3:59 PM CDT Kate Gutierrez PA-C CHEMISTRY ORDERABLES Final Result Performing Organization Address [facility] de Phone Number [facility] CLIA # [id number] [address] [address] * ETHANOL LEVEL (03/10/2025 3:55 PM CDT) ETHANOL <10.10 <10.10 mg/dL 03/10/2025 4:40 PM CDT [facility] ETHANOL % <0.01 <=0.01 %w/v 03/10/2025 4:40 PM CDT [facility] Blood Venipuncture / Unknown 03/10/2025 3:55 PM CDT 03/10/2025 3:59 PM CDT us Kate Gutierrez PA-C CHEMISTRY ORDERABLES Final Result [facility] CLIA # [id number] [address] [facility] [place] [address] * (ABNORMAL) COMPREHENSIVE METABOLIC PANEL (03/10/2025 3:55 PM CDT) Pathologist [facility] SODIUM 141 136 - 145 mmol/L 03/10/2025 4:42 PM CDT [facility] POTASSIUM 3.3(L) 3.5 - 5.1 mmol/L 03/10/2025 4:42 PM CDT [facility] CHLORIDE 108(H) 98 - 107 mmol/L 03/10/2025 4:42 PM CDT [facility] CO2 20(L) 22 - 29 mmol/L 03/10/2025 4:42 PM CDT [facility] CALCIUM 9.1 8.6 - 10.0 mg/dL 03/10/2025 4:42 PM CDT [facility] BUN 11 6 - 20 mg/dL 03/10/2025 4:42 PM CDT [facility] CREATININE 0.86 0.67 - 1.17 mg/dL 03/10/2025 4:42 PM CDT [facility] GLUCOSE 118(H) 74 - 99 mg/dL 03/10/2025 4:42 PM CDT [facility] TOTAL PROTEIN 7.6 6.4 - 8.3 g/dL 03/10/2025 4:42 PM CDT [facility] ALBUMIN 4.5 3.5 - 5.2 g/dL 03/10/2025 4:42 PM CDT [facility] BILIRUBIN TOTAL 0.2 0.0 - 1.0 mg/dL 03/10/2025 4:42 PM CDT [facility] ALKALINE PHOSPHATASE 66 40 - 129 U/L 03/10/2025 4:42 PM CDT [facility] AST 15 10 - 50 U/L 03/10/2025 4:42 PM CDT [facility] ALT 13 <=50 U/L 03/10/2025 4:42 PM CDT [facility] GFR >60 >=60 mL/min/1.7 3 sq meter 03/10/2025 4:42 PM CDT [facility] Comment:eGFR calculated with 2020 CKD-EPI equation. Vegetarian diet, extremely high or low muscle mass, and may affect results. Cystatin C with Glomerular Filtration Rate is a suitable alternative for these patients. ANION GAP 13 9 - 20 mmol/L 03/10/2025 4:42 PM [facility] Blood Venipuncture / Unknown 03/10/2025 3:55 PM CDT 03/10/2025 3:59 PM CDT Kate Gutierrez PA-C CHEMISTRY ORDERABLES Final Result [facility] CLIA # [id number] [address] [address] from Last 3 Months Insurance [facility] [employer] [facility] MEDICAID Advance Directives For more information, please contact: [phone] * Full Code (Latest Code Status on File) Date Activated Date Inactivated Comments 03/10/2025 10:38 PM 03/12/2025 3:35 PM
--- OUTSIDE RECORDS SUMMARY | 2025-05-08 12:39 | XMS_ITS | Encounter Summary ---
Author Organization [employer] Address [address] [place] [address] Care Team Providers Care Correction Officer [facility]entiary Name Role Phone Unavailable Primary Care Provider [...]
[2025-05-08 12:41] VITALS: BP 118/84; PULSE 88; RESP 16; O2SAT 98
--- NOTE | 2025-05-08 13:26 | W.ED.WOUNDLC ---
HPI - Wound/Laceration General: Chief Complaint: Skin/Abscess/Foreign Body Stated Complaint: L ear wound reopening Time Seen by Provider: 05/08/25 12:59 Source: patient Mode of arrival: ambulatory Limitations: no limitations History of Present Illness: Patient is a 40-year-old male who presents to ED today for a repeat wound evaluation involving his left earlobe. Patient was seen here 1 to 2 weeks ago regarding a laceration to the lobule. This was repaired with sutures. Patient states he has had a portion of the laceration dehisced and now the flap is getting caught on his shirt when he dresses and he is afraid it will get caught and dehisce the remainder of the laceration/wound. Onset (ago): day(s) Location: other (ear) Place: home Patient tetanus UTD: Yes Context: accidental Associated symptoms: Reports no associated symptoms; Denies fever(s), nausea or vomiting Related Data Home Medications ?Medication ?Instructions ?Recorded ?Confirmed acetaminophen 500 mg tablet 1,000 mg PO Q6H PRN Pain 04/02/22 05/01/25 aspirin 81 mg tablet,delayed 81 mg PO QPM 03/08/25 05/01/25 release (Adult Low Dose Aspirin) Previous Rx's ?Medication ?Instructions ?Recorded aripiprazole 5 mg tablet 5 mg PO QPM #30 tabs 03/28/25 citalopram 40 mg tablet 40 mg PO QPM #30 tabs 03/28/25 rosuvastatin 5 mg tablet (Crestor) 5 mg PO QPM #30 tabs 04/09/25 valsartan 160 mg tablet (Diovan) 160 mg PO QPM #30 tabs 04/09/25 zonisamide 100 mg capsule 400 mg (4 x 100 mg) PO DAILY 04/09/25 (Zonegran) seizure like activiy 30 days #120 caps mupirocin 2 % topical ointment 1 applic topical DAILY #15 grams 04/26/25 (Centany) terbinafine HCl 250 mg tablet 250 mg PO DAILY 90 days #90 tabs 05/01/25 Allergies Allergy/AdvReac Type Severity Reaction Status Date / Time No Known Allergies Allergy Verified 05/01/25 11:12 Review of Systems Const: Denies: fever(s) ENMT: Denies: ear or mastoid pain, ear discharge or change in hearing GI: Denies: nausea or vomiting Musc: Denies: neck pain Neuro: Denies: headache(s) PFSH ED PFSH: Medical History Alcohol use disorder in remission Major depressive disorder, recurrent, mild Cannabis use disorder 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 Nicotine dependence, cigarettes, uncomplicated Psychiatric care Essential hypertension Generalized anxiety disorder History of staph infection Smoker Elevated blood pressure reading Surgical History History of oral surgery Family History Father Hypertension Mother , age 47 Cancer ovarian Denies family history of Clotting disorder Anesthesia complication Bleeding disorder Social History Smoking and tobacco/nicotine status: current every day tobacco/nicotine user cigarettes Packs smoked per day: 0.5 Years cigarettes smoked: 15 Quit status (tobacco/nicotine): has tried quititng Number of times tried to quit tobacco: 3 Second hand smoke exposure: Yes Alcohol intake: former Substance/Drug Use: current Substance/Drug use frequency: daily Other substance/drug use details: Recreational. Adopted: No Caregiver/support person: No Lives independently: Yes Household members: spouse Housing: House Marital status: Number of children: 6 Highest education level completed: High School Graduate service: No Current occupational status: unemployed Pets and animals: Yes Do you think of yourself as: Straight/Heterosexual Current gender identity: Male Physical Exam Const: COMMON NORMALS: no acute distress, average body habitus, patient oriented x3, no limitations, healthy appearing, alert and well nourished HENMT: EAR IMAGES:  1. laceration repaired 2. wound dehiscence with exposed flap Neuro: COMMON NORMALS: patient oriented x3 SENSORIUM/ORIENTATION: Yes alert Course Vital Signs: Vital signs: Vital Signs Pulse Rate 88 05/08/25 12:41 Respiratory Rate 16 05/08/25 12:41 Blood Pressure 118/84 05/08/25 12:41 Pulse Oximetry 98 05/08/25 12:41 Oxygen Delivery Me thod Room Air 05/08/25 12:41 MDM - Wound/Laceration Medical Decision Making They were told at previous visit this may require plastic surgery for definitive cosmetic repair. Patient and his significant other states they cannot afford this as they did call to attempt to schedule an appointment. I do agree that the flap is posing additional wound dehiscence and is incredibly bothersome for the patient as it does seem to get caught. Wound was copiously irrigated and I did use 2 sutures to tack this flap down. We did discuss how his use of large 18-gauge earrings have stretched the ear lobule and tissue could eventually not be viable. Also discussed risk of infection given the length of initial repair. Patient verbalized both of these potential complications and still would like me to attempt cosmetic repair. Differential Diagnosis Likely laceration Medical Records I reviewed the patient's medical records. Lab Data 05/08/25 13:15 05/08/25 13:15 Laboratory Results WBC 8.26 10^3/uL (3.29-11.43) 05/08/25 13:15 RBC 4.87 10^6/uL (3.85-5.65) 05/08/25 13:15 Hgb 14.80 g/dL (11.27-16.99) 05/08/25 13:15 Hct 42.0 % (37-53) 05/08/25 13:15 MCV 86.2 fl (82-101) 05/08/25 13:15 MCH 30.4 pg (27-33) 05/08/25 13:15 MCHC 35.2 g/dL (30-55) 05/08/25 13:15 RDW 14.4 % (12.1-15.1) 05/08/25 13:15 Plt Count 204 10^3/cmm (157-399) 05/08/25 13:15 MPV 8.9 fL (7.4-10.4) 05/08/25 13:15 Neut % (Auto) 49.6 % 05/08/25 13:15 Lymph % (Auto) 36.1 % 05/08/25 13:15 [place] % (Auto) 6.7 % 05/08/25 13:15 Eos % (Auto) 5.9 % 05/08/25 13:15 Baso % (Auto) 1.5 % 05/08/25 13:15 Neut # (Auto) 4.10 10^3/uL (1.8-7.7) 05/08/25 13:15 Lymph # (Auto) 3.0 10^3/uL (0.8-4.8) 05/08/25 13:15 [place] # (Auto) 0.6 10^3/uL (0.2-0.9) 05/08/25 13:15 Eos # (Auto) 0.5 10^3/uL (0.0-0.8) 05/08/25 13:15 Baso # (Auto) 0.1 10^3/uL (0.0-0.1) 05/08/25 13:15 Nucleated RBC % (auto) 0 % 05/08/25 13:15 Nucleated RBCs # 0.0 /100WBC 05/08/25 13:15 Sodium 141 mmol/L (136-145) 05/08/25 13:15 Potassium 3.4 mmol/L (3.5-5.1) L 05/08/25 13:15 Chloride 107 mmol/L (98-107) 05/08/25 13:15 Carbon Dioxide 23 mmol/L (22-29) 05/08/25 13:15 Anion Gap 14.4 (5-19) 05/08/25 13:15 BUN 12 mg/dL (6-20) 05/08/25 13:15 Creatinine 1.0 mg/dL (0.7-1.2) 05/08/25 13:15 GFR Calculation 82.8 mL/min (90-130) L 05/08/25 13:15 Glucose 93 mg/dL (65-115) 05/08/25 13:15 Calculated Osmolality 291 mOsm/kg (285-295) 05/08/25 13:15 Calcium 9.4 mg/dL (8.5-10.5) 05/08/25 13:15 Total Bilirubin 0.3 mg/dL (0.15-1.2) 05/08/25 13:15 AST 17 U/L (0-40) 05/08/25 13:15 ALT 12 U/L (0-41) 05/08/25 13:15 Alkaline Phosphatase 64 U/L (40-130) 05/08/25 13:15 Total Protein 7.3 g/dL (6.6-8.7) 05/08/25 13:15 Albumin 4.4 g/dL (3.5-5.2) 05/08/25 13:15 Globulin 2.9 g/dL (1.3-4.6) 05/08/25 13:15 No radiology studies performed this visit Discharge Plan Discharge Patient Disposition: Home Clinical Impression: Wound dehiscence Condition: Stable Prescriptions: No Action zonisamide [Zonegran] 100 mg capsule 400 mg PO DAILY 30 Days Qty: 120 2RF valsartan [Diovan] 160 mg tablet 160 mg PO QPM Qty: 30 2RF rosuvastatin [Crestor] 5 mg tablet 5 mg PO QPM Qty: 30 2RF terbinafine HCl 250 mg tablet 250 mg PO DAILY 90 Days Qty: 90 0RF aripiprazole 5 mg tablet 5 mg PO QPM Qty: 30 2RF citalopram 40 mg tablet 40 mg PO QPM Qty: 30 2RF acetaminophen 500 mg Tablet 1,000 mg PO Q6H PRN (Reason: Pain) aspirin [Adult Low Dose Aspirin] 81 mg tablet,delayed release (DR/EC) 81 mg PO QPM mupirocin [Centany] 2 % ointment 1 applic topical DAILY Qty: 15 0RF Discharge Orders: Discharge ED (Routine); Ordered 05/08/25 Ordered By: Alisha Correa Referrals: Mika Campbell, CUT OUT MACHINE OPERATOR-C [Primary Care Provider, Family Practice] Patient Instructions: Patient Portal & Ashley Instructions Activity Restrictions/Additional Instructions: As we discussed, please keep wound clean with warm soap and water or hydrogen peroxide. Monitor for signs of infection such as redness, swelling, drainage, increased pain. Please seek medical re-evaluation if these occur. Sutures can be cut out in 2 weeks. Print Language: Latvian Coding Level of Care Code ED Care Partner for Conor Castillo
[2025-05-08 13:34] LABS: Hematocrit 42.0 % (37-53); Hemoglobin 14.80 g/dL (11.27-16.99); Mean Corpuscular HGB Conc 35.2 g/dL (30-55); Mean Corpuscular Hemoglobin 30.4 pg (27-33); Mean Corpuscular Volume 86.2 fl (82-101); Nucleated Red Blood Cells % 0 %; Platelet Count 204 10^3/cmm (157-399); Red Blood Count 4.87 10^6/uL (3.85-5.65); White Blood Count 8.26 10^3/uL (3.29-11.43)
[2025-05-08 13:49] LABS: Alanine Aminotransferase 12 U/L (0-41); Albumin Level 4.4 g/dL (3.5-5.2); Alkaline Phosphatase 64 U/L (40-130); Anion Gap 14.4 (5-19); Aspartate Amino Transferase 17 U/L (0-40); Blood Urea Nitrogen 12 mg/dL (6-20); Calcium 9.4 mg/dL (8.5-10.5); Carbon Dioxide 23 mmol/L (22-29); Chloride 107 mmol/L (98-107); Globulin 2.9 g/dL (1.3-4.6); Glucose 93 mg/dL (65-115); Osmolality Calculated 291 mOsm/kg (285-295); Potassium 3.4 mmol/L (3.5-5.1); Sodium 141 mmol/L (136-145); Total Protein 7.3 g/dL (6.6-8.7)
== END 2025-05-08 14:10 | disposition home or self-care (01) ==
PROVIDERS: Family Medicine; Emergency Provider Physician Assistant; PCP Nurse Practitioner
DX: T81.30XA Disruption of wound, unspecified, initial encounter (principal); S01.312D Laceration without foreign body of left ear, subsequent encounter; X58.XXXD Exposure to other specified factors, subsequent encounter; X58.XXXA Exposure to other specified factors, initial encounter; Z79.82 Long term (current) use of aspirin; F17.210 Nicotine dependence, cigarettes, uncomplicated; I10 Essential (primary) hypertension
CPT/HCPCS: 36415; 80053; 85025; 99283

== ENCOUNTER → 2025-06-26 08:41 | Outpatient (BNVA) | payer MEDICAID, SELFPAY | PROVIDERS: PCP Nurse Practitioner; Visit Provider Podiatrist Foot & Ankle Surgery | DX: B35.1 Tinea unguium (principal); Z79.899 Other long term (current) drug therapy | CPT/HCPCS: 80053 ==

== ENCOUNTER → 2025-07-02 11:48 | Outpatient (BNVA) | payer MEDICAID, SELFPAY | PROVIDERS: PCP Nurse Practitioner; Visit Provider Nurse Practitioner | DX: Z13.6 Encounter for screening for cardiovascular disorders (principal); E55.9 Vitamin D deficiency, unspecified | CPT/HCPCS: 80061; 82306; 82607 ==

== ENCOUNTER → 2025-07-19 14:04 | Outpatient (BNVA) | payer OTHER, SELFPAY | PROVIDERS: PCP Nurse Practitioner; Visit Provider Nurse Practitioner | DX: Z79.899 Other long term (current) drug therapy (principal) | CPT/HCPCS: 80061; 83036 ==